=== PATIENT | female | born 1980 ===

== ENCOUNTER 2025-04-03 10:18 | Outpatient (AMB) | payer OTHER, SELFPAY ==
--- OUTSIDE RECORDS SUMMARY | 2024-08-02 04:15 | XMS_ITS ---
Author Organization [facility] Address [address] [place] [address] Care Team Providers Care Timber Inspector Name Role Phone TALIA DEXTER Unavailable [phone] Medications Medication SIG (Take, Route, Frequency, Duration) Notes Start Date End Date Status Zepbound 5 MG/0.5ML Solution Auto-injector 5mg weekly Subcutaneous weekly; Duration: 30 days Active Encounters Encounter Location Date Provider Diagnosis [facility] [address] [address] 08/02/2024 TALIA DEXTER Other obesity due to excess calories E66.09 ; BMI 31.0-31.9,adult Z68.31 ; Chronic obstructive asthma J44.9 ; GERD without esophagitis K21.9 ; Bipolar disorder with depression F31.9 ; CLEMENCIA (generalized anxiety disorder) F41.1 and Adult ADHD F90.9 Assessments Encounter Date Diagnosis (ICD Code) Assessment Notes Treatment Notes Treatment Clinical Notes Section Notes 08/02/2024 Other obesity due to excess calories (ICD-10 - E66.09) #Weight Management 08/02/2024 CEE injection Will try for approval for Zepbound as she was thriving on Mounjaro previously Recommend follow-up with psychiatry for stimulant medication for ADHD. Recommend follow-up with automation clerk for menopausal hormone screening. Total time spent today was 30 minutes of which greater than 50% was spent on coordinating and counseling Patient has been found to be obese with a BMI of (31). Patient has class (1) obesity. Of note, some information is being carried forward from prior records for informational purposes only and is being cited so that efficiency, safety and quality of the patient's care is not compromised This note was prepared using voice recognition software and direct typing Please excuse inadvertent hull outfit supervisor or typing errors, or uncorrected word substitutions Although every attempt has been made by the provider to proofread this document, occasional misspellings and typographical errors may still be present Due to the previous pandemic, and the use of personal protective equipment (PPE) This may decrease voice recognition accuracy Inadvertent hull outfit supervisor errors may occur 08/02/2024 BMI 31.0-31.9,adult (ICD-10 - Z68.31) #Weight Management 08/02/2024 CEE injection Will try for approval for Zepbound as she was thriving on Mounjaro previously Recommend follow-up with psychiatry for stimulant medication for ADHD. Recommend follow-up with automation clerk for menopausal hormone screening. Total time spent today was 30 minutes of which greater than 50% was spent on coordinating and counseling Patient has been found to be obese with a BMI of (31). Patient has class (1) obesity. Of note, some information is being carried forward from prior records for informational purposes only and is being cited so that efficiency, safety and quality of the patient's care is not compromised This note was prepared using voice recognition software and direct typing Please excuse inadvertent hull outfit supervisor or typing errors, or uncorrected word substitutions Although every attempt has been made by the provider to proofread this document, occasional misspellings and typographical errors may still be present Due to the previous pandemic, and the use of personal protective equipment (PPE) This may decrease voice recognition accuracy Inadvertent hull outfit supervisor errors may occur 08/02/2024 Chronic obstructive asthma (ICD-10 - J44.9) #Weight Management 08/02/2024 CEE injection Will try for approval for Zepbound as she was thriving on Mounjaro previously Recommend follow-up with psychiatry for stimulant medication for ADHD. Recommend follow-up with automation clerk for menopausal hormone screening. Total time spent today was 30 minutes of which greater than 50% was spent on coordinating and counseling Patient has been found to be obese with a BMI of (31). Patient has class (1) obesity. Of note, some information is being carried forward from prior records for informational purposes only and is being cited so that efficiency, safety and quality of the patient's care is not compromised This note was prepared using voice recognition software and direct typing Please excuse inadvertent hull outfit supervisor or typing errors, or uncorrected word substitutions Although every attempt has been made by the provider to proofread this document, occasional misspellings and typographical errors may still be present Due to the previous pandemic, and the use of personal protective equipment (PPE) This may decrease voice recognition accuracy Inadvertent hull outfit supervisor errors may occur 08/02/2024 GERD without esophagitis (ICD-10 - K21.9) #Weight Management 08/02/2024 CEE injection Will try for approval for Zepbound as she was thriving on Mounjaro previously Recommend follow-up with psychiatry for stimulant medication for ADHD. Recommend follow-up with automation clerk for menopausal hormone screening. Total time spent today was 30 minutes of which greater than 50% was spent on coordinating and counseling Patient has been found to be obese with a BMI of (31). Patient has class (1) obesity. Of note, some information is being carried forward from prior records for informational purposes only and is being cited so that efficiency, safety and quality of the patient's care is not compromised This note was prepared using voice recognition software and direct typing Please excuse inadvertent hull outfit supervisor or typing errors, or uncorrected word substitutions Although every attempt has been made by the provider to proofread this document, occasional misspellings and typographical errors may still be present Due to the previous pandemic, and the use of personal protective equipment (PPE) This may decrease voice recognition accuracy Inadvertent hull outfit supervisor errors may occur 08/02/2024 Bipolar disorder with depression (ICD-10 - F31.9) #Weight Management 08/02/2024 CEE injection Will try for approval for Zepbound as she was thriving on Mounjaro previously Recommend follow-up with psychiatry for stimulant medication for ADHD. Recommend follow-up with automation clerk for menopausal hormone screening. Total time spent today was 30 minutes of which greater than 50% was spent on coordinating and counseling Patient has been found to be obese with a BMI of (31). Patient has class (1) obesity. Of note, some information is being carried forward from prior records for informational purposes only and is being cited so that efficiency, safety and quality of the patient's care is not compromised This note was prepared using voice recognition software and direct typing Please excuse inadvertent hull outfit supervisor or typing errors, or uncorrected word substitutions Although every attempt has been made by the provider to proofread this document, occasional misspellings and typographical errors may still be present Due to the previous pandemic, and the use of personal protective equipment (PPE) This may decrease voice recognition accuracy Inadvertent hull outfit supervisor errors may occur 08/02/2024 CLEMENCIA (generalized anxiety disorder) (ICD-10 - F41.1) #Weight Management 08/02/2024 CEE injection Will try for approval for Zepbound as she was thriving on Mounjaro previously Recommend follow-up with psychiatry for stimulant medication for ADHD. Recommend follow-up with automation clerk for menopausal hormone screening. Total time spent today was 30 minutes of which greater than 50% was spent on coordinating and counseling Patient has been found to be obese with a BMI of (31). Patient has class (1) obesity. Of note, some information is being carried forward from prior records for informational purposes only and is being cited so that efficiency, safety and quality of the patient's care is not compromised This note was prepared using voice recognition software and direct typing Please excuse inadvertent hull outfit supervisor or typing errors, or uncorrected word substitutions Although every attempt has been made by the provider to proofread this document, occasional misspellings and typographical errors may still be present Due to the previous pandemic, and the use of personal protective equipment (PPE) This may decrease voice recognition accuracy Inadvertent hull outfit supervisor errors may occur 08/02/2024 Adult ADHD (ICD-10 - F90.9) #Weight Management 08/02/2024 CEE injection Will try for approval for Zepbound as she was thriving on Mounjaro previously Recommend follow-up with psychiatry for stimulant medication for ADHD. Recommend follow-up with automation clerk for menopausal hormone screening. Total time spent today was 30 minutes of which greater than 50% was spent on coordinating and counseling Patient has been found to be obese with a BMI of (31). Patient has class (1) obesity. Of note, some information is being carried forward from prior records for informational purposes only and is being cited so that efficiency, safety and quality of the patient's care is not compromised This note was prepared using voice recognition software and direct typing Please excuse inadvertent hull outfit supervisor or typing errors, or uncorrected word substitutions Although every attempt has been made by the provider to proofread this document, occasional misspellings and typographical errors may still be present Due to the previous pandemic, and the use of personal protective equipment (PPE) This may decrease voice recognition accuracy Inadvertent hull outfit supervisor errors may occur Plan Of Treatment Medication Medication Name Sig Start Date Stop Date Notes Zepbound 5 MG/0.5ML Solution Auto-injector 5mg weekly Subcutaneous weekly; Duration: 30 days Next Appt Details Provider Name:TALIA DEXTER, 07/04/2025 09:00:00 AM, [address] [facility], [facility] [address], [place], [address], History and Physical Notes * HPI (History of Present Illness) Category Sub-Category Detail Notes Category Not es Constitutional Patient is here today for weight management follow-up visit Patient seen and examined. Full past medical history, social history, family history, allergies and current medications were reviewed and updated. Body composition analysis reviewed today #Weight Management 08/02/2024 She is dual weight management and primary care patient of the practice Labs are reviewed Had been on 7.5mg Mounjaro, last injection in March* due to insurance Working on prior authorization for Zepbound, apparently [facility] will cover it As expected there is weight regain She has a history that includes major depression, bipolar depression, anxiety and ADHD Reports difficulty focusing at work, doing daily activities and would like to start medications She takes stimulants as well as fluoxetine, trazodone at bedtime and Tegretol as a mood stabilizer She also has as needed Klonopin She sees [facility]ING MACHINE [facility] for her psychiatric provider She currently is not terribly active or doing any strength or resistance training or cardio Admits to gaining weight back since being off the medications but previously had good appetite suppression. Later down the road when she is on maintenance dosing and done losing weight she would be interested in plastics evaluation for potential removal of excess skin had EGD done recently No ill side effects, reports mild constipation States that she is using Linzess which relieves her symptoms. Prioritizing eggs and protein shakes States that she is taking a probiotic, vitamin B12 complex, and vitamin D. paternal hx of CRC, young age, she has been getting screened for the past >5 years 08/02/2024, Weight , BMI 06/28/2024, Weight 173 , BMI (+7 lbs) 05/11/2024, Weight 167lbs , BMI 30 (-4lbs) 03/23/2024, Weight 171lbs , BMI 32 (-4lbs) 02/01/2024, Weight 175, BMI 32 (-2lbs) 11/23/2023, Weight 178 lbs, BMI 32.5 (-5lbs) 09/17/2023, Weight 183lbs , BMI 33 (-6lbs) 08/04/2023, Weight 189lbs , BMI 34 (+8lbs) 04/23/2023, Weight 181 lbs, BMI 33.2 (-4lbs) 03/05/2023: Weight 185 lbs (-8 lbs) BMI 33 01/09/2023: Weight 193 lb (-9 lbs) BMI 35.3 11/26/2022: Weight 202lbs, BMI 36, (-8lbs) 10/15/2022: Weight lbs, 210 BMI: 38 PCP, Dr. Brooke Ravi at [place]. Patient works as PRODUCTION CONTROL EXPERT. Highest weight: 235 lbs Lowest weight: 155 lbs Goal weight: 160 lbs MICHAEL screening: a while back, not recently. Was not a candidate for CPAP. labs June 2024 CBC stable Total cholesterol 212, triglycerides 94, HDL 67, LDL 126 Vitamin D 30 TSH 2.65 Renal function electrolytes and LFTs stable Hemoglobin A1c of 5.0 Health maintenance Mammography: 03/2024, [place] Colorectal screening, father passed from CRC young age, 01/2022, [facility], q5 year surveilance, due in 2026 Flu 2023 defers COVID mRNA 2 GYNO: 08/2023, [place] Examination Category Sub-Category Detail Notes Category Not es General Examination GENERAL APPEARANCE: in no ac cesar distress, well developed, well nourished HEAD: normocephalic, atrau matic EYES: pupils equal, round, reactive to light and accommodation EARS: normal THROAT: clear NECK/THYROID: neck supple, full ra nge of motion, no cervical lymphadenopathy HEART: no murmurs, regular rate and rhythm, S1, S2 normal LUNGS: inspiratory wheezes clear with cough ABDOMEN: normal, bowel sounds present, soft, nontender, nondistended NEUROLOGIC: nonfocal, motor stre ngth normal upper and lower extremities, sensory exam intact SKIN: no suspicious lesion s, warm and dry EXTREMITIES: no clubbing, cyanosi s, or edema ORAL CAVITY: mucosa moist Progress Notes * Delia OSBORNE:[birth year] (44 yo F)Acc No.[id number]:08/02/2024 Patient: Angela Garcia Provider: Lynn DEXTER NP :1980 A ge:44 Y S ex:Female Date:08/02/2024 Address:[address] [place], [place] [id number] Subjective: * Chief Complaints: * HPI: C onstitutional: Patient is here today for weight management follow-up visit Patient seen and examined. Full past medical history, social history, family history, allergies and current medications were reviewed and updated. Body composition analysis reviewed today #Weight Management 08/02/2024 She is dual weight management and primary care patient of the practice Labs are reviewed Had been on 7.5mg Mounjaro, last injection in March* due to insurance Working on prior authorization for Zepbound, apparently [facility] will cover it As expected there is weight regain She has a history that includes major depression, bipolar depression, anxiety and ADHD Reports difficulty focusing at work, doing daily activities and would like to start medications She takes stimulants as well as fluoxetine, trazodone at bedtime and Tegretol as a mood stabilizer She also has as needed Klonopin She sees [facility] for her psychiatric provider She currently is not terribly active or doing any strength or resistance training or cardio Admits to gaining weight back since being off the medications but previously had good appetite suppression. Later down the road when she is on maintenance dosing and done losing weight she would be interested in plastics evaluation for potential removal of excess skin had EGD done recently No ill side effects, reports mild constipation States that she is using Linzess which relieves her symptoms. Prioritizing eggs and protein shakes States that she is taking a probiotic, vitamin B12 complex, and vitamin D. paternal hx of CRC, young age, she has been getting screened for the past >5 years 08/02/2024, Weight , BMI 06/28/2024, Weight 173 , BMI (+7 lbs) 05/11/2024, Weight 167lbs , BMI 30 (-4lbs) 03/23/2024, Weight 171lbs , BMI 32 (-4lbs) 02/01/2024, Weight 175, BMI 32 (-2lbs) 11/23/2023, Weight 178 lbs, BMI 32.5 (-5lbs) 09/17/2023, Weight 183lbs , BMI 33 (-6lbs) 08/04/2023, Weight 189lbs , BMI 34 (+8lbs) 04/23/2023, Weight 181 lbs, BMI 33.2 (-4lbs) 03/05/2023: Weight 185 lbs (-8 lbs) BMI 33 01/09/2023: Weight 193 lb (-9 lbs) BMI 35.3 11/26/2022: Weight 202lbs, BMI 36, (-8lbs) 10/15/2022: Weight lbs, 210 BMI: 38 PCP, Dr. Brooke Ravi at [place]. Patient works as PRODUCTION CONTROL EXPERT. Highest weight: 235 lbs Lowest weight: 155 lbs Goal weight: 160 lbs MICHAEL screening: a while back, not recently. Was not a candidate for CPAP. labs June 2024 CBC stable Total cholesterol 212, triglycerides 94, HDL 67, LDL 126 Vitamin D 30 TSH 2.65 Renal function electrolytes and LFTs stable Hemoglobin A1c of 5.0 Health maintenance Mammography: 03/2024, [facility] Colorectal screening, father passed from CRC young age, 01/2022, [facility], q5 year surveilance, due in 2026 Flu 2023 defers COVID mRNA 2 GYNO: 08/2023, [place]/[facility]. * ROS: A ll Other Systems: Review of Systems (ROS) A ll others negative except those mentioned in HPI. Objective: * Examination: G eneral Examination: GENERAL APPEARANCE: i n no acute distress, well developed, well nourished. HEAD: n ormocephalic, atraumatic. EYES: p upils equal, round, reactive to light and accommodation. EARS: n ormal. ORAL CAVITY: m ucosa moist. THROAT: c lear. NECK/THYROID: n randal supple, full range of motion, no cervical lymphadenopathy. SKIN: n o suspicious lesions, warm and dry. HEART: n o murmurs, regular rate and rhythm, S1, S2 normal.? LUNGS: i nspiratory wheezes clear with cough. ABDOMEN: n ormal, bowel sounds present, soft, nontender, nondistended. EXTREMITIES: n o clubbing, cyanosis, or edema. NEUROLOGIC: n onfocal, motor strength normal upper and lower extremities, sensory exam intact. Assessment: * Assessment: 1. O ther obesity due to excess calories - E66.09 2 . B [place] 31.0-31.9,adult - Z68.31 3 . C hronic obstructive asthma - J44.9 4 . G ERD without esophagitis - K21.9 5 . B ipolar disorder with depression - F31.9 & #160; 6 . G AD (generalized anxiety disorder) - F41.1 7 . A dult ADHD - F90.9 #Weight Management 08/02/2024 CEE injection Will try for approval for Zepbound as she was thriving on Mounjaro previously Recommend follow-up with psychiatry for stimulant medication for ADHD. Recommend follow-up with automation clerk for menopausal hormone screening. Total time spent today was 30 minutes of which greater than 50% was spent on coordinating and counseling Patient has been found to be obese with a BMI of (31). Patient has class (1) obesity. Of note, some information is being carried forward from prior records for informational purposes only and is being cited so that efficiency, safety and quality of the patient's care is not compromised This note was prepared using voice recognition software and direct typing Please excuse inadvertent hull outfit supervisor or typing errors, or uncorrected word substitutions Although every attempt has been made by the provider to proofread this document, occasional misspellings and typographical errors may still be present Due to the previous pandemic, and the use of personal protective equipment (PPE) This may decrease voice recognition accuracy Inadvertent hull outfit supervisor errors may occur. Plan: * Treatment: * Electronic signature of BRIGITTE DEXTER on 04/03/2025 at 11:40 AM EST Sign off status: Pending * Provider: Lynn DEXTER NP Date: 0 08/02/2024 Generated for Jordan warner/Zahida/Bakari on: 1 11:40 AM EST
--- OUTSIDE RECORDS SUMMARY | 2025-03-29 09:25 | XMS_ITS | Encounter Summary ---
Author Organization [facility] Address [address] [place] [address] Care Team Providers Care Aircraft Cabin Cleaner Name Role Phone Evelin Heard NP Primary Care Provider [phone] Encounter Details Date Type Department Care Team ([facility] Contact Info) Description 03/29/2025 9:25 AM EST Lab Draw Station - [address] Screen for STD (sexually transmitted disease); Post-menopausal bleeding Social History Tobacco Use Types Packs/Day Years Used Date Smoking Tobacco: Never Smokeless Tobacco: Never Alcohol Use Standard Drinks/Week Comments Yes 0 (1 standard drink = 0.6 oz pur e alcohol) Comments No Sex and Gender Information Value Date Recorded Sex Assigned at Not on file Legal Sex Female 4:51 AM EST Gender Identity Not on file Sexual Orientation Not on file documented as of this encounter Plan of Treatment Upcoming Encounters Date Type Department Care Team ([facility] Contact Info) Description 04/04/2025 9:45 AM EST Appointment Ultrasound - [address] [phone] 11/24/2025 8:40 AM EDT Office Visit Gastroenterology - [address] [phone] Diann Chavez NP [address] [address] documented as of this encounter Procedures Procedure Name Priority Date/Time Associated Diagnosis Comments HEPATITIS C ANTIBODY Routine 03/29/2025 9:26 AM EST Screen for STD (sexually transmitted disease) HIV 1, 2 ANTIBODY, P24 ANTIGEN WITH REFLEX TO DIFFERENTIATION Routine 03/29/2025 9:26 AM EST Screen for STD (sexually transmitted disease) TREPONEMA PALLIDUM ANTIBODY WITH REFLEX TO RPR AND PARTICLE AGGLUTINATION Routine 03/29/2025 9:26 AM EST Screen for STD (sexually transmitted disease) FOLLICLE STIMULATING HORMONE Routine 03/29/2025 9:26 AM EST Post-menopausal bleeding documented in this encounter Results * Follicle stimulating hormone (03/29/2025 9:26 AM EST) Follicle Stimulating Hormone 24.7 See Comment mIU/mL 03/29/2025 2:24 PM EST [facility] Blood Venous blood specimen / Unknown Venipuncture / Unknown 03/29/2025 9:26 AM EST 03/29/2025 9:26 AM EST Narrative [facility] - 03/29/2025 2:24 PM EST [facility] Female Reference Ranges (mIU/mL): Menstruating: Follicular phase: 2.5 - 10.2 Mid-cycle phase: 3.4 - 33.4 Luteal phase: 1.5 - 9.1 Post-menopausal: 23.0 - 116.3 : < 0.3 Latia Nichols CNM LAB BLOOD ORDERABLES Final R esult [facility] [address] [place] [address], * Treponema pallidum antibody with reflex to RPR and particle agglutination (03/29/2025 9:26 AM EST) Pathologist [facility] T. Pallidum Antibodies Negative Negative 03/29/2025 12:31 PM EST [facility] Blood Venous blood specimen / Unknown Venipuncture / Unknown 03/29/2025 9:26 AM EST 03/29/2025 9:26 AM EST Latia Nichols [facility] BLOOD ORDERABLES Final R esult Performing Organization Address City/[facility]/ZIP Co de Phone Number [facility] [address] [place] [address], [place] [phone] * HIV 1,2 antibody, p24 antigen with reflex to differentiation (03/29/2025 9:26 AM EST) HIV Combo AB/AG Negative Negative 03/29/2025 12:41 PM EST [facility] Blood Venous blood specimen / Unknown Venipuncture / Unknown 03/29/2025 9:26 AM EST 03/29/2025 9:26 AM EST Narrative [facility] - 03/29/2025 12:41 PM EST This assay is a 4th generation assay allowing for earlier detection of HIV infection by detecting the presence of the HIV-1 p24 antigen as well as the traditional antibodies to HIV type 1 (including group O) and type 2. Use of a 4th generation assay is the current CDC recommendation for HIV screening. Latia Nichols [facility] BLOOD ORDERABLES Final R esult Performing Organization Address [facility] Co de Phone Number [facility] [address] [place] [address], [place] [phone] * Hepatitis C antibody (03/29/2025 9:26 AM EST) Pathologist [facility] Hepatitis C Antibody Negative Negative 03/29/2025 12:48 PM EST [facility] Blood Venous blood specimen / Unknown Venipuncture / Unknown 03/29/2025 9:26 AM EST 03/29/2025 9:26 AM EST Latia Nichols [facility] BLOOD ORDERABLES Final R esult Performing Organization Address City/[facility]/ZIP Co de Phone Number [facility] [address] [place] [address], documented in this encounter Visit Diagnoses Diagnosis Screen for STD (sexually transmitted disease) Screening examination for venereal disease Post-menopausal bleeding Postmenopausal bleeding documented in this encounter Care Teams Aircraft Cabin Cleaner Relationship Specialty Start Date End Date Evelin eHard NP [address] [place] [address] PCP - General Nurse Practitioner 07/12/24 documented as of this encounter
--- OUTSIDE RECORDS SUMMARY | 2025-03-29 09:30 | XMS_ITS | Encounter Summary ---
Author Organization [facility] Address [address] [place] [address] Care Team Providers Care Thrasher Feeder Name Role Phone Evelin Heard NP Primary Care Provider [phone] Reason for Referral * Imaging (Routine) - Pending Review Specialty Diagnoses / Procedures Referred By Ceci frey Referred To Contact Radiology Diagnoses Post-menopausal bleeding Procedures US Pelvis Non OB Complete w Transvaginal Latia Nichols CNM [address] [place] [address] Phone: tel: fax: [address] Phone: tel: Referral ID Status Reason Start Date Expiration Date V isits Requested Visits Authorized [id number] Pending Review 03/29/2025 03/29/2026 1 1 Reason for Visit * Reason Comments Annual Exam Encounter Details Date Type Department Care Team (Latest Contact Info) Description 03/29/2025 9:30 AM EST Office Visit Obstetrics and Gynecology - [address] [phone] Latia Nichols CNM [address] [place] [id number] Screen for STD (sexually transmitted disease) (Primary Dx); Post-menopausal bleeding Social History Tobacco Use Types [...] on file documented as of this encounter Last Filed Vital Signs Vital Sign Reading Time Taken Comments Blood Pressure 122/76 03/29/2025 8:59 AM EST Pulse 74 03/29/2025 8:59 AM EST Temperature - - Respiratory Rate 16 03/29/2025 8:59 AM EST Oxygen Saturation - - Inhaled Oxygen Concentration - - Weight 65.9 kg (145 lb 3.2 oz) 03/29/2025 8:59 A M EST Height 157.5 cm (5' 2 ) 03/29/2025 8:59 AM EST Body Mass Index 26.56 03/29/2025 8:59 AM EST documented in this encounter Progress Notes * Latia Nichols CNM - 03/29/2025 9:30 AM EST Office note: Routine Pass Worker Exam Encounter Date: 03/29/2025 HPI: Angela Osborne is a 44 y.o. who presents for routine annual exam. No LMP recorded (lmp unknown). Patient is postmenopausal. She says about 2 years, although about 3 weeks ago she had 2 episodes of spotting and passing a clot of tissue from her vagina. She has one partner, but would like STD testing. Review of Systems - General ROS: negative Psychological ROS: negative Ophthalmic ROS: negative ENT ROS: negative Allergy and Immunology ROS: negative Hematological and Lymphatic ROS: negative Endocrine ROS: negative Breast ROS: negative for breast lumps Respiratory ROS: no cough, shortness of breath, or wheezing Cardiovascular ROS: no chest pain or dyspnea on exertion Gastrointestinal ROS: no abdominal pain, change in bowel habits, or black or bloody stools Genito-Urinary ROS: no dysuria, trouble voiding, or hematuria Musculoskeletal ROS: negative Neurological ROS: negative Dermatological ROS: negative Health Maintenance and Preventative Care: Health Maintenance: Last mammogram: 03/30 BR 2 Immunization History Administered Date(s) Administered HPV, Quadrivalent 10/27/2006, 12/30/2006, 05/04/2007 Hep B, Unspecified 02/26/2009 Influenza Quadravalent, MDCK, 0.5ml, preservative free (Flucelvax) 6mo and older 01/09/2020 Influenza trivalent, 0.5mL, preservative free (Fluarix; FluLaval; Fluzone) ages 6mo and older (Afluria) 3 years and older 01/31/2011, 12/12/2011, 04/21/2013, 12/28/2013, 12/28/2015, 12/20/2019 Influenza, Unspecified 12/28/2013, 02/03/2021 Measles 04/30/2007 Mumps 04/30/2007 PPD Test 12/02/2005, 04/30/2007, 02/23/2009, 06/08/2019 Pfizer SARS-CoV-2 COVID-19, mRNA, LNP-S, preservative free 02/03/2021, 02/24/2021 Pneumococcal polysaccharide 23 valent (Pneumovax 23) 2yo and older 05/17/2013 Rubella 04/30/2007 Tdap Tetanus diptheria acellular pertussis (Boostrix; Adacel) 7yo and older 04/30/2007, 11/12/2017 Varicella live (Varivax) 12mo and older 04/30/2007 OB History Para Term AB Living 4 4 4 SAB IAB Ectopic Multiple Live Births 4 # Outcome Date GA Lbr Cale/2nd Weight Sex Type Anes PTL Lv 4 Term 3 Term 2 Term 1 Term Pass Worker History: Last Pap: 11/27 neg H/o abnormal Pap: 09/23 pap neg, HPV + Problem List[1] Medical History[2] Surgical History[3] Family History[4] Social History Socioeconomic History Marital status: Single Spouse name: None Number of children: None Years of education: None Highest education level: None Occupational History None Tobacco Use Smoking status: Never Smokeless tobacco: Never Substance and Sexual Activity Alcohol use: Yes Drug use: Yes Types: Marijuana/Cannabis Sexual activity: Yes Partners: Male control/protection: Surgical Comment: tubal Other Topics Concern None Social History Narrative 05/29-works as [employer]. Same partner x 6 yrs, engaged. They have 2 daughters together ages 6 and 4 yrs, she has 2 older daughters. Work FT as SENIOR BUSINESS PROCESS ANALYST. Allergies[5] Medications Ordered Prior to Encounter[6] Physical exam: Blood pressure 122/76, pulse 74, resp. rate 16, height 1.575 m (62 ), weight 65.9 kg (145 lb 3.2 oz). Body mass index is 26.56 kg/m??. Gen: Alert, cooperative. Well-appearing on today's exam HEENT: head normocephalic without obvious deformity. Cardiovascular: regular rate and rhythm, no m/r/g Lung: clear to auscultation bilaterally, no wheezing, ronchi, normal respiratory effort Breast: Normal appearance, no masses or tenderness, no nipple retraction or dimpling bilaterally. No axillary or supraclavicular lymphadenopathy. Abdomen: Soft,non-tender. No masses palpable, no organomegaly. Extremities: no calf tenderness, discoloration or edema, atraumatic without deformity Skin: Skin color, texture, turgor normal. No rashes or lesions Psych: Mood and affect appropriate. Pelvic: External Genitalia: Normal architecture, without lesions. No inguinal lymphadenopathy. Vagina: Mucosa is pink with normal rugae. No abnormal discharge or lesions. Cervix: Normal appearance, without discharge or lesions. No cervical motion tenderness. Uterus: Normal size and shape. Anteverted position. Non-tender. Mobile Adnexa: No adnexal masses or tenderness bilaterally. Perianal area without lesions Assessment/Plan: 44 y.o. 1. Screening for sexually transmitted infections -Gonorrhea/Chlamydia testing offered, accepted 2. Contraception -menopause 3. Health Maintenance and Screening -Reviewed ASCCP guidelines. Pap smear q5y, yearly pelvic exam. -Reviewed and encouraged diet and exercise for cardiovascular and bone health -Reviewed breast self awareness. yearly mammogram at age 40. -Discussed use of 3 times per week weight bearing exercise, Vitamin D3 and 4 servings of dietary calcium daily for bone health. -Continue to follow with PCP for general medical care, immunizations -Family and personal history of cancer reviewed. Jase screening not indicated. IF labs are negative, will refer for EMB No follow-ups on file. Latia Nichols CNM [1] Patient Active Problem List Diagnosis Anxiety Backache Bipolar disorder ([facility] V24, [facility] V28) Cervical disc herniation Chronic constipation Gastroesophageal reflux disease History of COVID-19 Insomnia Internal and external hemorrhoids without complication Kidney stone Lab test negative for COVID-19 virus Microhematuria Migraine Multiple thyroid nodules Moderate persistent asthma without complication Neck pain Obesity (BMI 30-39.9) Perennial allergic rhinitis PTSD (post-traumatic stress disorder) Snoring Vitamin D deficiency [2] Past Medical History: Diagnosis Date Anxiety DX:Anxiety ASCUS with positive high risk HPV cervical 09/21/2018 DX:ASCUS with positive high risk HPV cervical; COMMENT: 09/13/18 pap smear Colpo 10/26/18 - biopsies all negative Bipolar disorder ([facility] V24, [facility] V28) DX:Bipolar disorder ([facility]); COMMENT: clinical support [facility] Cervical spondylosis without myelopathy DX:Cervical spondylosis without myelopathy Chronic constipation 02/20/2016 DX:Chronic constipation Constipation DX:Constipation CTS (carpal tunnel syndrome) DX:CTS (carpal tunnel syndrome) Depression DX:Depression False positive HIV serology DX:False positive HIV serology Family history of colon cancer in father DX:Family history of colon cancer in father Family history of colonic polyps DX:Family history of colonic polyps Functional dyspepsia DX:Functional dyspepsia Gastroesophageal reflux disease 11/15/2018 DX:Gastroesophageal reflux disease GERD (gastroesophageal reflux disease) DX:GERD (gastroesophageal reflux disease) History of colonoscopy 11/18/2016 DX:History of colonoscopy; COMMENT: Family history, repeat in 5 years History of Helicobacter pylori infection 10/04/2018 DX:History of Helicobacter pylori infection; COMMENT: successfully treated with a PrevPac (2018) Internal and external hemorrhoids without complication 02/20/2016 DX:Internal and external hemorrhoids without complication Obesity, unspecified 11/27/2005 DX:Obesity, unspecified Unspecified asthma(493.90) 11/27/2005 DX:Unspecified asthma(493.90) [3] Past Surgical History: Procedure Laterality Date ADENOIDECTOMY PROCEDURE: HISTORICAL ADENOIDECTOMY BLADDER SUSPENSION PROCEDURE: HISTORICAL BLADDER SUSPENSION COLONOSCOPY 11/18/2016 PROCEDURE: HISTORICAL COLONOSCOPY; COMMENT: Dr. Janet norris, repeat 5 years. COLONOSCOPY 2021 PROCEDURE: HISTORICAL COLONOSCOPY; COMMENT: rpt 5 years FLEXIBLE SIGMOIDOSCOPY 2015 PROCEDURE: HISTORICAL FLEXIBLE SIGMOIDOSCOPY; COMMENT: Internal and external hemorrhoids NECK SURGERY PROCEDURE: HISTORICAL NECK SURGERY NECK SURGERY 04/2022 PROCEDURE: HISTORICAL NECK SURGERY; COMMENT: herniated disc NECK SURGERY PROCEDURE: HISTORICAL NECK SURGERY; COMMENT: cervical spinal fusion TONSILLECTOMY 2000 PROCEDURE: HISTORICAL TONSILLECTOMY TUBAL LIGATION 2004 PROCEDURE: HISTORICAL TUBAL LIGATION UPPER GASTROINTESTINAL ENDOSCOPY 12/08/2019 PROCEDURE: FL UPPER GI ENDOSCOPY PERFORMED; COMMENT: normal [4] Family History Problem Relation Name Age of Onset Diabetes Mother Hypertension Mother Colon cancer Father 56 Nephrolithiasis Sister Hypertension Sister Diabetes Sister Alzheimer's disease Other both grandmothers Lymphoma Mother's side grandmother Cataracts Maternal Grandmother Dementia Maternal Grandmother Alzheimer's disease Paternal Grandmother Other (Other: GI issues) Sister Asthma Daughter Asthma Daughter Asthma Daughter No Known Problems Daughter Colon cancer Father's side Other (Other: pancreatic cancer) Father's side Colon cancer Aunt dad's sis Blindness Neg Hx Glaucoma Neg Hx Macular degeneration Neg Hx Strabismus Neg Hx [5] Allergies Allergen Reactions Dog Dander Other feathers Topiramate Rash [6] Current Outpatient Medications on File Prior to Visit Medication Sig Dispense Refill albuterol 2.5 mg /3 mL (0.083 %) nebulizer solution Take 1 Vial by nebulization every 4 hours as needed for Wheezing for up to 180 days. albuterol HFA (PROAIR HFA ; PROVENTIL HFA ; VENTOLIN HFA) 90 mcg/actuation inhaler INHALE 2 PUFFS INTO THE LUNGS EVERY 4 HOURS NEEDED FOR COUGH OR WHEEZING aluminum-magnesium hydroxide-simethicone (MAALOX) 200-200-20 mg/5 mL suspension Take 15 mL by mouth4 times daily as needed for Other. azelastine (ASTELIN) 137 mcg (0.1 %) nasal spray USE 2 SPRAYS IN EACH NOSTRIL TWICE DAILY cetirizine (ZyrTEC) 10 mg tablet Take 1 Tablet by mouth daily. clonazePAM (KlonoPIN) 1 mg tablet Take 1 Tab by mouth 3 times daily as needed for Anxiety. clotrimazole-betamethasone (LOTRISONE) 1-0.05 % cream Apply to area sparingly twice a day for up totwo weeks cyclobenzaprine (FLEXERIL) 10 mg tablet Take 0.5-1 Tablets by mouth at bedtime as needed for Musclespasms. diphenhydramine HCl (ALLERGY ORAL) divalproex (DEPAKOTE) [address] tablet Take 3 Tablets by mouth at bedtime. dupilumab (Dupixent Syringe) 200 mg/1.14 mL syringe INJECT 1 SYRINGE (200MG) UNDER THE SKIN EVERY 14 DAYS EPINEPHrine (EpiPen 2-Wan) 0.3 mg/0.3 mL injection Inject 1 Device as directed as needed (ANAPHYLAXIS). Use as directed etonogestreL-ethinyl estradioL (NUVARING) 0.12-0.015 mg/24 hr vaginal ring Insert vaginally and leave in place for 3 consecutive weeks, then remove for 1 week. famotidine (PEPCID) 20 mg tablet Take 1 Tablet by mouth at bedtime as needed for Heartburn. FLUoxetine (PROzac) 20 mg capsule Take 1 capsule (20 mg total) by mouth. fluticasone propionate (FLONASE) 50 mcg/actuation nasal spray 1 [place] by Each Nare route 2 times daily. fluticasone-salmeterol (ADVAIR DISKUS) 250-50 mcg/dose diskus inhaler Inhale 1 Puff into the lungs every 12 hours for 360 days. gabapentin (NEURONTIN) 300 mg capsule gabapentin (NEURONTIN) 600 mg tablet Take 1 tablet by mouth at bedtime. hydrocortisone 1 % ointment Apply topically to face twice daily as needed, avoid contact with eyes Lactobacillus combination no.8 (ADULT PROBIOTIC ORAL) Take 1 Cap by mouth daily. - Oral lidocaine (LIDODERM) 5 % patch Place 1 patch onto the skin daily. Remove & Discard patch [id number] hours or as directed by linaCLOtide (Linzess) 290 mcg capsule Take 1 capsule (290 mcg total) by mouth 1 (one) time each daybefore breakfast. 30 capsule 2 methocarbamoL (ROBAXIN) 500 mg tablet Take 2 tablets (1,000 mg total) by mouth 4 (four) times a day. montelukast (SINGULAIR) 10 mg tablet Every Evening naproxen (NAPROSYN) 500 mg tablet Take 1 tablet (500 mg total) by mouth 2 (two) times a day with meals. ondansetron ODT (ZOFRAN-ODT) 4 mg disintegrating tablet Take 1 Tablet by mouth every 8 hours as needed for Nausea. OXcarbazepine (TRILEPTAL) 300 mg tablet Take 3 Tabs by mouth daily. pantoprazole (PROTONIX) 40 mg EC tablet Take 1 Tablet by mouth daily. phenazopyridine (PYRIDIUM) 100 mg tablet Take 1 Tablet by mouth 3 times daily as needed for Pain for up to 5 days. psyllium (Daily Fiber, psyllium-aspart,) 3.4 gram packet Take 1 Packet by mouth daily. simethicone (MYLICON,GAS-X) 125 mg capsule Take 1 Capsule by mouth 2 times daily as needed (bloating). SUMAtriptan (IMITREX) 50 mg tablet Take 1 tab at onset of headache and may repeat with second tab if not improving after 2 hours, if needed for headaches. Do not exceed 3 doses per week tiotropium (SPIRIVA) 18 mcg per inhalation capsule Daily traZODone (DESYREL) 50 mg tablet Take 50 mg by mouth at bedtime. No current facility-administered medications on file prior to visit. documented in this encounter Plan of Treatment Upcoming Encounters Date Type Department Care Team ([facility] st Contact Info) Description 04/04/2025 9:45 AM EST Appointment Ultrasound - [address] [place] [address] 11/24/2025 8:40 AM EDT Office Visit Gastroenterology - [address] [phone] Diann Chavez, MADHU [address] [address] Scheduled Orders Name Type Priority Associated Diagnoses Orde r Schedule US Pelvis Non OB Complete w Transvaginal Imaging Routine Post-menopausal bleeding Expected: 03/29/2025, Expires: 03/29/2026 documented as of this encounter Procedures Procedure Name Priority Date/Time Associated Diagnosis Comments CHLAMYDIA TRACHOMATIS AND NEISSERIA GONORRHOEAE PCR Routine 03/29/2025 9:44 AM EST Screen for STD (sexually transmitted disease) documented in this encounter Results * Chlamydia trachomatis and Neisseria gonorrhoeae molecular study (03/29/2025 9:44 AM EST) Neisseria gonorrhoeae PCR Negative Negative LAB MOLECULAR DIAGNOSTICS METHOD 03/29/2025 4:08 PM EST [facility] Chlamydia trachomatis PCR Negative Negative LAB MOLECULAR DIAGNOSTICS METHOD 03/29/2025 4:[address] [facility] Swab Vaginal structure / Unknown Non-blood Collection / Unknown 03/29/2025 9:44 AM EST 03/29/2025 9:45 AM EST Latia Nichols CNM LAB MICROBIOLOGY - GENERAL O RDERABLES Final Result Performing Organization Address [facility]/ZIP Co de Phone Number [facility] [address] [place] [address], * Hepatitis C antibody (03/29/2025 9:26 AM EST) Hepatitis C Antibody Negative Negative 03/29/2025 12:48 PM [facility] Blood Venous blood specimen / Unknown Venipuncture / Unknown 03/29/2025 9:26 AM EST 03/29/2025 9:26 AM EST Latia Nichols CNM LAB BLOOD ORDERABLES Final R esult Performing Organization Address City/[facility]/ZIP Co de Phone Number [facility] [address] [place] [address], * HIV 1,2 antibody, p24 antigen with reflex to differentiation (03/29/2025 9:26 AM EST) HIV Combo AB/AG Negative Negative 03/29/2025 12:[address] [facility] Blood Venous blood specimen / Unknown Venipuncture / Unknown 03/29/2025 9:26 AM EST 03/29/2025 9:[address] [facility] - 03/29/2025 12:41 PM EST This assay is a 4th generation assay allowing for earlier detection of HIV infection by detecting the presence of the HIV-1 p24 antigen as well as the traditional antibodies to HIV type 1 (including group O) and type 2. Use of a 4th generation assay is the current CDC recommendation for HIV screening. us Latia IRAHETA LAB BLOOD ORDERABLES Final R esult [facility] [address] [place] [address], [place] [phone] * Treponema pallidum antibody with reflex to RPR and particle agglutination (03/29/2025 9:26 AM EST) T. Pallidum Antibodies Negative Negative 03/29/2025 12:[address] [facility] Blood Venous blood specimen / Unknown Venipuncture / Unknown 03/29/2025 9:26 AM EST 03/29/2025 9:26 AM EST Latia [facility] BLOOD ORDERABLES Final R esult Performing Organization Address [facility]/ZIP Co de Phone Number [facility] [address] [place] [address], [place] [phone] * Follicle stimulating hormone (03/29/2025 9:26 AM EST) Follicle Stimulating Hormone 24.7 See Comment mIU/mL 03/29/2025 2:[address] [facility] Blood Venous blood specimen / Unknown Venipuncture / Unknown 03/29/2025 9:26 AM EST 03/29/2025 9:[address] [facility] - 03/29/2025 2:24 PM EST [facility] Female Reference Ranges (mIU/mL): Menstruating: Follicular phase: 2.5 - 10.2 Mid-cycle phase: 3.4 - 33.4 Luteal phase: 1.5 - 9.1 Post-menopausal: 23.0 - 116.3 : < 0.3 Latia IRAHETA [facility] BLOOD ORDERABLES Final R esult Performing Organization Address City/[facility]/ZIP Co de Phone Number [facility] [address] [phone] documented in this encounter Visit Diagnoses Diagnosis Screen for STD (sexually transmitted disease)- Primary Screening examination for venereal disease Post-menopausal bleeding Postmenopausal bleeding documented in this encounter Care Teams Thrasher Feeder Relationship Specialty Start Date End Date Evelin Heard NP [address] [place] [address] PCP - General Nurse Practitioner 07/12/24 documented as of this encounter
--- NOTE | 2025-04-03 10:19 | MHC.OFFVIS ---
Intake Visit Reasons: 6m Allergies topiramate (Topamax) Allergy (Unknown, Verified 04/03/25 10:20) Unknown Medication List - Last Reconciled 04/03/25 by Hayley Maza CNP albuterol sulfate 90 mcg/actuation 1 puff inhalation Q4H PRN azelastine 2 sprays intranasal DAILY cetirizine 10 mg PO DAILY clonazepam 1 mg PO TID PRN cyclobenzaprine 10 mg PO TID dupilumab (Dupixent) mg subcut fluoxetine 20 mg PO DAILY fluticasone propion-salmeterol 500-50 mcg/dose (Wixela Inhub) inhalation DAILY galcanezumab-gnlm (Emgality Pen) 120 mg subcut QMONTH linaclotide (Linzess) 290 mcg PO DAILY ondansetron HCl 4 mg PO DAILY PRN oxcarbazepine 300 mg PO TID pantoprazole 40 mg PO QAM quetiapine 50 mg PO BEDTIME sumatriptan succinate take 1 tab at onset of headache; if no relief may repeat 1 tab after at least 2 hrs; PO 30 days trazodone 150 mg PO BEDTIME verapamil 40 mg PO BID HPI Comments Details: 44-year-old [place] woman with depression, anxiety, bipolar disorder, asthma, and migraine. She had tried multiple medications in the past without full relief. Migraines were much better with Emgality and she was very happy with this medication. She got some headaches a few days before next dose of medication was due. Sumatriptan as needed helped. Sleep was okay. Review of Systems Const Denies chills, Denies daytime sleepiness, Reports difficulty sleeping, Denies fatigue, Denies fever(s), Denies frequent falls, Reports headache(s), Denies increased appetite, Denies poor appetite, Denies snoring, Denies weakness, Denies weight gain and Denies weight loss Eyes Denies loss of vision ENT Denies vertigo, Reports dizziness and Reports headache(s) Card Denies chest pain at rest, Denies chest pain with activity, Denies syncope, Denies leg edema and Denies palpitations Resp Denies snoring GI Denies constipation, Denies heartburn, Denies diarrhea and Denies nausea Denies urinary frequency, Denies urinary incontinence and Denies urinary urgency Musc Denies abnormal gait, Denies numbness and Denies tingling Skin/Breast Denies dry skin and Denies rash Neuro Denies abnormal gait, Denies vertigo, Reports dizziness, Denies syncope, Denies frequent falls, Reports headache(s), Denies lack of coordination, Denies loss of vision, Denies memory loss, Denies numbness, Denies restless legs, Denies seizure-like activity, Denies tingling, Denies paresthesias, Denies tremor(s) and Denies weakness Psych Reports anxiety, Reports depression, Denies auditory hallucinations, Denies memory loss, Denies visual hallucinations and Denies suicidal ideation Endo Denies fatigue and Denies palpitations Physical Exam Const Other: General Appearance:? normal, in no acute distress. Skin:? no rashes, no significant birthmarks. Heart:? S1, S2 normal, no murmurs. Lungs:? clear anteriorly and posteriorly. Extremities:? no edema. Psych:? alert, oriented, cognitive function intact, cooperative with exam. Neuro Other: Mental Status:?Normal attention, orientation, memory and affect.? Cranial Nerves:?Pupils are equal, round and reactive to light. External occular muscles are intact. Visual foster are full. Face is symmetrical. Facial sensations are normal. Tongue is midline. Palate elevates symmetrically. Shoulder shrugging is normal. Hearing to bedside conversation is normal. Sensory Exam:?....? Coordination:?No ataxia,?no titubation.? Gait Exam: Within normal limits. Cerebellar Signs:?[id number]-tiby is okay. Extrapyramidal System:?No tremor, rigidity with normal facial expressions.? Pronator Drift:?Not present.? Involuntary Movements:?No tremors seen.? Speech:?Normal.? Assessment & Plan Assessment & Plan (1) Chronic migraine w/o aura w/o status migrainosus, not intractable: Code(s): G43.709 - Chronic migraine without aura, not intractable, without status migrainosus Category: Medical Plan: Continue Emgality 120mg/mL subcutaneous monthly. Continue verapamil 40mg 1 tablet twice a day. Continue sumatriptan 50mg 1 tablet as needed for migraines. Plan Meds tried for migraine: Amitryptiline, topiramate, depakote, prophranalol, cyclobenzperine, sumatripan, naproxen, fluoxetine, oxcarbazepine Emgality loading dose given 12/28/2023. Medications: New verapamil 40 mg PO BID 180 tabs 1RF 90 days Changed From galcanezumab-gnlm (Emgality Pen) 120 mg subcut QMONTH To galcanezumab-gnlm (Emgality Pen) 120 mg subcut QMONTH 1 mL 5RF 30 days Refilled sumatriptan succinate take 1 tab at onset of headache; if no relief may repeat 1 tab after at least 2 hrs; PO 10 tabs 5RF 30 days Coding Level of Care Code Est Pt Level 4 (40492) Diagnoses Chronic migraine w/o aura w/o status migrainosus, not intractable G43.709
--- OUTSIDE RECORDS SUMMARY | 2025-04-03 11:40 | XMS_ITS | Clinical Summary ---
Author Organization [address] Address [address] [place] [phone] Phone Care Team Providers Care Network Support Technician Name Role Phone Evelin Heard NP Primary Care Provider [phone] Allergies Active Allergy Reactions Criticality Noted Date Comments Dog Dander 11/24/2024 Other 11/13/2021 feathers Topiramate Rash 02/24/2018 Medications diphenhydramine HCl (ALLERGY ORAL) A ctive albuterol 2.5 mg /3 mL (0.083 %) nebulizer solution Take 1 Vial by nebulization every 4 hours as needed for Wheezing for up to 180 days. 09/24/19 24 Active albuterol HFA (PROAIR HFA ; PROVENTIL HFA ; VENTOLIN HFA) 90 mcg/actuation inhaler INHALE 2 PUFFS INTO THE LUNGS EVERY 4 HOURS NEEDED FOR COUGH OR WHEEZING 11/24/19 24 Active azelastine (ASTELIN) 137 mcg (0.1 %) nasal spray USE 2 SPRAYS IN EACH NOSTRIL TWICE DAILY 08/12/19 23 Active cetirizine (ZyrTEC) 10 mg tablet Take 1 Tablet by mouth daily. 11/14/19 22 Active clotrimazole-betam ethasone (LOTRISONE) 1-0.05 % cream Apply to area sparingly twice a day for up to two weeks 01/10/20 23 Active clonazePAM (KlonoPIN) 1 mg tablet Take 1 Tab by mouth 3 times daily as needed for Anxiety. 10/04/19 20 Active cyclobenzaprine (FLEXERIL) 10 mg tablet Take 0.5-1 Tablets by mouth at bedtime as needed for Muscle spasms. 09/24/19 24 Active divalproex (DEPAKOTE) [address] tablet Take 3 Tablets by mouth at bedtime. 09/28/19 Active dupilumab (Dupixent Syringe) 200 mg/1.14 mL syringe INJECT 1 SYRINGE (200MG) UNDER THE SKIN EVERY 14 DAYS 01/11/20 Active EPINEPHrine (EpiPen 2-Wan) 0.3 mg/0.3 mL injection Inject 1 Device as directed as needed (ANAPHYLAXIS). Use as directed 04/23/19 Active etonogestreL-ethin yl estradioL (NUVARING) 0.12-0.015 mg/24 hr vaginal ring Insert vaginally and leave in place for 3 consecutive weeks, then remove for 1 week. 07/10/19 24 Active famotidine (PEPCID) 20 mg tablet Take 1 Tablet by mouth at bedtime as needed for Heartburn. 01/15/20 Active FLUoxetine (PROzac) 20 mg capsule Take 1 capsule (20 mg total) by mouth. 10/04/19 Active fluticasone-salmet garrett (ADVAIR DISKUS) 250-50 mcg/dose diskus inhaler Inhale 1 Puff into the lungs every 12 hours for 360 days. 03/07/20 Active fluticasone propionate (FLONASE) 50 mcg/actuation nasal spray 1 [place] by Each Nare route 2 times daily. 03/07/20 Active gabapentin (NEURONTIN) 600 mg tablet Take 1 tablet by mouth at bedtime. 02/14/20 Active gabapentin (NEURONTIN) 300 mg capsule Active hydrocortisone 1 % ointment Apply topically to face twice daily as needed, avoid contact with eyes 09/17/19 Active lidocaine (LIDODERM) 5 % patch Place 1 patch onto the skin daily. Remove & Discard patch within 12 hours or as directed by 11/03/19 Active aluminum-magnesium hydroxide-simethic one (MAALOX) 200-200-20 mg/5 mL suspension Take 15 mL by mouth 4 times daily as needed for Other. 06/12/19 24 Active methocarbamoL (ROBAXIN) 500 mg tablet Take 2 tablets (1,000 mg total) by mouth 4 (four) times a day. 11/03/19 21 Active montelukast (SINGULAIR) 10 mg tablet Every Evening Active naproxen (NAPROSYN) 500 mg tablet Take 1 tablet (500 mg total) by mouth 2 (two) times a day with meals. 11/03/19 21 Active ondansetron ODT (ZOFRAN-ODT) 4 mg disintegrating tablet Take 1 Tablet by mouth every 8 hours as needed for Nausea. 10/21/19 24 Active OXcarbazepine (TRILEPTAL) 300 mg tablet Take 3 Tabs by mouth daily. 10/04/19 20 Active pantoprazole (PROTONIX) 40 mg EC tablet Take 1 Tablet by mouth daily. 12/21/19 24 Active phenazopyridine (PYRIDIUM) 100 mg tablet Take 1 Tablet by mouth 3 times daily as needed for Pain for up to 5 days. 07/08/19 24 Active psyllium (Daily Fiber, psyllium-aspart,) 3.4 gram packet Take 1 Packet by mouth daily. 04/08/19 23 Active simethicone (MYLICON,GAS-X) 125 mg capsule Take 1 Capsule by mouth 2 times daily as needed (bloating). 06/12/19 24 Active tiotropium (SPIRIVA) 18 mcg per inhalation capsule Daily Active SUMAtriptan (IMITREX) 50 mg tablet Take 1 tab at onset of headache and may repeat with second tab if not improving after 2 hours, if needed for headaches. Do not exceed 3 doses per week 07/03/19 23 Active traZODone (DESYREL) 50 mg tablet Take 50 mg by mouth at bedtime. 10/04/19 20 Active Lactobacillus combination no.8 (ADULT PROBIOTIC ORAL) Take 1 Cap by mouth daily. - Oral 06/11/19 17 Active linaCLOtide (Linzess) 290 mcg capsule Take 1 capsule (290 mcg total) by mouth 1 (one) time each day before breakfast. 30 capsule 2 09/13/19 25 Active Active Problems Problem Noted Date Diagnosed Date Bipolar disorder 02/19/2024 Overview (02/19/2024): clinical support [facility] History of COVID-19 11/21/2021 Overview (02/19/2024): 06/19/21 and 11/21/21 Insomnia 04/09/2021 Lab test negative for COVID-19 virus 04/07/2020 Moderate persistent asthma without complication 07/06/2019 Gastroesophageal reflux disease 11/15/2018 Overview (02/19/2024): EGD on 12/08/19 normal Perennial allergic rhinitis 02/24/2018 Migraine 12/22/2017 Obesity (BMI 30-39.9) 04/24/2017 Cervical disc herniation 01/24/2017 Snoring 12/30/2016 Overview (02/19/2024): 12/22/2016 Diagnostic Sleep Study did not reveal sleep apnea. Chronic constipation 02/20/2016 Internal and external hemorrhoids without compli cation 02/20/2016 Backache 09/02/2013 Overview (02/19/2024): Seen by dr haywood. 05/20-Small right posterior disc herniation at L2-3. Other findings as above. Kidney stone 07/21/2013 Microhematuria 07/21/2013 Neck pain 03/05/2013 Overview (02/19/2024): 02/16- mri c spine-Findings suggestive of muscle spasm. Multilevel bony and disc degenerative changes as described above more prominent at C6-7 level. A large left para midline herniation of the C6-7 disc compresses the left aspect of the spinal cord. No focal signal abnormalities within the cord. Additional findings at other levels. Please see details in the report. Dr haywood 04/28-ACDF performed by [facility] neurosurgery 10/27-abnormal EMG. 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 Evidence of chronic nonactive left C7 radiculopathy. Anxiety 09/27/2012 PTSD (post-traumatic stress disorder) 09/27/2012 Overview (02/19/2024): [facility] Vitamin D deficiency 02/27/2009 Overview (02/19/2024): 4876-3015 Not responding to Vit D 50,000 units Multiple thyroid nodules 06/16/2007 Overview (02/19/2024): Thyroid u/s done 07/12 Revealed single small nodule ; Pt sent leter to call in 1 year for repeat u/s 02/14- Stable small hypoechoic right lower pole thyroid nodule since 05/14. 03/17 stable-seen by dr cabrera Encounters Date Type Department Care Team Description 03/31/2025 Results Follow-Up Obstetrics and Gynecology - [address] [phone] Latia Nichols CNM 03/29/2025 9:30 AM EST Office Visit Obstetrics and Gynecology - [address] [phone] Latia Nichols CNM Screen for STD (sexually transmitted disease) (Primary Dx); Post-menopausal bleeding 03/29/2025 9:25 AM EST Lab Draw Station - [address] Screen for STD (sexually transmitted disease); Post-menopausal bleeding 03/27/2025 8:07 AM EST - 03/27/2025 11:59 PM EST [facility] [address] [phone] Encounter for screening mammogram for breast cancer Discharge Disposition: Home or Self Care from Last 3 Months Immunizations Immunization Administration Dates Next Due HPV, Quadrivalent 05/04/2007,12/30/2006,10/28/19 07 Hep B, Unspecified 02/26/2009 Influenza Quadravalent, MDCK , 0.5ml, preservative free (Flucelvax) 6mo and older 01/09/2020 Influenza trivalent, 0.5mL, preservative free (Fluarix; FluLaval; Fluzone) ages 6mo and older (Afluria) 3 years and older 12/20/2019,12/28/2015,12/28/2013,04/21,12/12/2011,01/31/2011 Influenza, Unspecified 02/03/2021,12/28/2013 Measles 04/30/2007 Mumps 04/30/2007 PPD Test 06/08/2019, 9,04/30/2007,12/02 Pfizer SARS-CoV-2 COVID-19, mRNA, LNP-S, preservative free 02/24/2021,02/03/2021 Pneumococcal polysaccharide 23 valent (Pneumovax 23) 2yo and older 05/17/2013 Rubella 04/30/2007 Tdap Tetanus diptheria acell ular pertussis (Boostrix; Adacel) 7yo and older 11/12/2017,04/30/2007 Varicella live (Varivax) 12m o and older 04/30/2007 Surgical History Surgery Date Site/Laterality Comments TUBAL LIGATION 2004 PROCEDURE: HISTORICAL TUBAL LIGATION TONSILLECTOMY 2000 PROCEDURE: HISTORICAL TONSILLECTOMY BLADDER SUSPENSION PROCEDURE: HISTORICAL BLADDER SUSPENSION NECK SURGERY PROCEDURE: HISTORICAL NECK SURGERY ADENOIDECTOMY PROCEDURE: HISTORICAL ADENOIDECTOMY FLEXIBLE SIGMOIDOSCOPY 2015 PROCEDURE: HISTORICAL FLEXIBLE SIGMOIDOSCOPY; COMMENT: Internal and external hemorrhoids UPPER GASTROINTESTINAL ENDOSCOPY 12/08/2019 PROCEDURE: TN UPPER GI ENDOSCOPY PERFORMED; COMMENT: normal COLONOSCOPY 11/18/2016 PROCEDURE: HISTORICAL COLONOSCOPY; COMMENT: Dr. Janet norris, repeat 5 years. NECK SURGERY 04/2022 PROCEDURE: HISTORICAL NECK SURGERY; COMMENT: herniated disc COLONOSCOPY 2021 PROCEDURE: HISTORICAL COLONOSCOPY; COMMENT: rpt 5 years NECK SURGERY PROCEDURE: HISTORICAL NECK SURGERY; COMMENT: cervical spinal fusion Medical History Medical History Date Comments Obesity, unspecified 11/27/2005 DX:Obesity, unspecified Unspecified asthma(493.90) 11/27/2005 DX:Un specified asthma(493.90) Bipolar disorder ([facility] V2 4, [facility] V28) DX:Bipolar disorder ([facility]); C OMMENT: clinical support [facility] Anxiety DX:Anxiety Depression DX:Depression False positive HIV serology DX:F alse positive HIV serology Chronic constipation 02/20/2016 DX:Chronic constipation Internal and external hemorr hoids without complication 02/20/2016 DX:Internal and external hemorrhoids without complication History of colonoscopy 11/18/2016 DX:Histor y of colonoscopy; COMMENT: Family history, repeat in 5 years CTS (carpal tunnel syndrome) DX: CTS (carpal tunnel syndrome) History of Helicobacter pylo ri infection 10/04/2018 DX:History of Helicobacter p ylori infection; COMMENT: successfully treated with a PrevPac (2018) Gastroesophageal reflux disease 11/15/2018 DX:Gastroesophageal reflux disease ASCUS with positive high ris k HPV cervical 09/21/2018 DX:ASCUS with positive high risk HPV cervical; COMMENT: 09/13/18 pap smear Colpo 10/26/18 - biopsies all negative Family history of colon canc er in father DX:Family history of colon c ancer in father Family history of colonic polyps DX:Family history of colonic polyps Cervical spondylosis without myelopathy DX:Cervical spondylosis without myelopathy Constipation DX:Constipation GERD (gastroesophageal reflux disease) DX:GERD (gastroesophageal reflux disease) Functional dyspepsia DX:Function al dyspepsia Family History Medical History Relation Name Comments Colon cancer Aunt dad's sis Asthma Daughter 1 Asthma Daughter 2 Asthma Daughter 3 No Known Problems Daughter 4 Colon cancer Father Colon cancer Father's side Other: pancreatic cancer Father's side Cataracts Maternal Grandmother Dementia Maternal Grandmother Diabetes Mother Hypertension Mother Lymphoma Mother's side grandmother Alzheimer's disease Other both gra ndmothers Alzheimer's disease Paternal Grandmother Nephrolithiasis Sister 1 Diabetes Sister 2 Hypertension Sister 2 Other: GI issues Sister 3 Blindness Neg Hx Glaucoma Neg Hx Macular degeneration Neg Hx Strabismus Neg Hx Relation Name Status Comments Aunt dad's sis Alive Daughter 1 Alive Daughter 2 Alive Daughter 3 Alive Daughter 4 Alive Father healthy Father's side Maternal Grandmother Alive Mother Alive Mother's side Other Paternal Grandmother Sister 1 Alive 3,healthy Sister 2 Alive Sister 3 Alive Social History Tobacco Use Types Packs/Day Years Used Date Smoking Tobacco: Never Smokeless Tobacco: Never Tobacco Cessation:Counseling Given: Not Answered Alcohol Use Standard Drinks/Week Comments Yes 0 (1 standard drink = 0.6 oz pur e alcohol) Comments No Sex and Gender Information Value Date Recorded Sex Assigned at Not on file Legal Sex Female 4:51 AM EST Gender Identity Not on file Sexual Orientation Not on file Obstetrics History Para Term AB IAB SAB Ectopic Multiple Livin g Live Births 4 4 4 4 Date Outcome GA Total Labor Labor/2nd/3rd Weight Sex Type Anes PTL Rona A1 A5 Name Clin Term Term Term Term Last Filed Vital Signs Vital Sign Reading Time Taken Comments Blood Pressure 122/76 03/29/2025 8:59 AM EST Pulse 74 03/29/2025 8:59 AM EST Temperature - - Respiratory Rate 16 03/29/2025 8:59 AM EST Oxygen Saturation 100% 11/24/2024 8:44 AM EDT Inhaled Oxygen Concentration - - Weight 65.9 kg (145 lb 3.2 oz) 03/29/2025 8:59 A M EST Height 157.5 cm (5' 2 ) 03/29/2025 8:59 AM EST Body Mass Index 26.56 03/29/2025 8:59 AM EST Plan of Treatment Upcoming Encounters Date Type Department Care Team (Late st Contact Info) Description 04/04/2025 9:45 AM EST Appointment Ultrasound - [address] [place] [address] 11/24/2025 8:40 AM EDT Office Visit Gastroenterology - [address] [facility] [address] [place] [phone] Diann Chavez NP [address] [place] [address] Health Maintenance Due Date Last Done Comments Drug Screen 1980 Non-Opioid Controlled Substance Agreement 1980 Hepatitis B Vaccines (2 of 3 - 19+ 3-dose series) 03/26/2009 02/26/2009 COVID-19 Vaccine (3 - Pfizer risk series) 03/24/2021 02/24/2021, 02/03/2021 Medicare Annual Wellness Visit 03/13/2022 Social Influencers of Health Screening 03/13/2022 Depression Screening 04/06/2024 06/04/2021 Influenza Vaccine (#1) 2024 , 02/03/2021, 01/09/2020, Additional history exists Colorectal Cancer Screening: Colonoscopy 01/09/2027 01/09/2022 Breast Cancer Screening 03/27/2027 03/27/20, 03/25/2024, 03/17/2023, Additional history exists DTaP,Tdap,and Td Vaccines (3 - Td or Tdap) 11/13/2027 11/12/2017, 04/30/2007 Cervical Cancer Screening: HPV 11/09/2028 11/10/2023 Cholesterol Screening (Lipid Panel) 06/29/2029 06/29/2024, 07/15/2023 RSV Immunization Adult Patients (1 - 1-dose 75+ series) 06/19/2055 Varicella Vaccines Aged Out 04/30/2007 No longer eligible based on patient's age to complete this topic HPV Vaccines Completed 05/04/2007, 12/06, 10/27/2006 Pneumococcal Vaccine: Pediatrics (0 to 5 Years) and At-Risk Patients (6 to 49 Years) Completed 11/20/2022, 05/17/2013 HIV Screening Completed 03/29/2025, 07/08/2023 Hepatitis C Screening Completed 03/29/2025 HIB Vaccines Aged Out No longer eligi ble based on patient's age to complete this topic Hepatitis A Vaccines Aged Out No long er eligible based on patient's age to complete this topic IPV Vaccines Aged Out No longer eligi ble based on patient's age to complete this topic MMR Vaccines Aged Out No longer eligi ble based on patient's age to complete this topic Meningococcal ACWY Vaccine Aged Out N o longer eligible based on patient's age to complete this topic Meningococcal B Vaccine Aged Out No l onger eligible based on patient's age to complete this topic RSV Immunization Patients Under 20 months Aged Out No longer eligible based on patient's age to complete this topic Procedures Procedure Name Priority Date/Time Associated Diagnosis Comments CHLAMYDIA TRACHOMATIS AND NEISSERIA GONORRHOEAE PCR Routine 03/29/2025 9:44 AM EST Screen for STD (sexually transmitted disease) FOLLICLE STIMULATING HORMONE Routine 03/29/2025 9:26 AM EST Post-menopausal bleeding TREPONEMA PALLIDUM ANTIBODY WITH REFLEX TO RPR AND PARTICLE AGGLUTINATION Routine 03/29/2025 9:26 AM EST Screen for STD (sexually transmitted disease) HIV 1, 2 ANTIBODY, P24 ANTIGEN WITH REFLEX TO DIFFERENTIATION Routine 03/29/2025 9:26 AM EST Screen for STD (sexually transmitted disease) HEPATITIS C ANTIBODY Routine 03/29/2025 9:26 AM EST Screen for STD (sexually transmitted disease) MG MAMMO DIGITAL SCREENING W MICHAEL BILAT Routine 03/27/2025 8:34 AM EST Encounter for screening mammogram for breast cancer LIPID PANEL WITH REFLEX TO DIRECT LDL Routine 06/29/2024 8:07 AM EDT Routine general medical examination at a health care facility Abnormal blood chemistry HPV Routine 11/10/2023 COLONOSCOPY Routine 01/09/2022 DEPRESSION SCREENING Routine 06/04/2021 from Last 3 Months or Most Recently Relevant to Health Maintenance Results * Chlamydia trachomatis and Neisseria gonorrhoeae molecular study (03/29/2025 9:44 AM EST) [facility] Neisseria gonorrhoeae PCR Negative Negative LAB MOLECULAR DIAGNOSTICS METHOD 03/29/2025 4:08 PM EST [facility] Chlamydia trachomatis PCR Negative Negative LAB MOLECULAR DIAGNOSTICS METHOD 03/29/2025 4:08 PM EST [facility] Swab Vaginal structure / Unknown Non-blood Collection / Unknown 03/29/2025 9:44 AM EST 03/29/2025 9:45 AM EST Latia Nichols CNM LAB MICROBIOLOGY - GENERAL O RDERABLES Final Result Performing Organization Address [facility]/ZIP Co de Phone Number [facility] [address] [place] [address], * Hepatitis C antibody (03/29/2025 9:26 AM EST) [facility] Hepatitis C Antibody Negative Negative 03/29/2025 12:48 PM EST [facility] Blood Venous blood specimen / Unknown Venipuncture / Unknown 03/29/2025 9:26 AM EST 03/29/2025 9:26 AM EST Latia Nichols CNM LAB BLOOD ORDERABLES Final R esult [facility] [address] [place] [address], [place] [phone] * HIV 1,2 antibody, p24 antigen with reflex to differentiation (03/29/2025 9:26 AM EST) [facility] HIV Combo AB/AG Negative Negative 03/29/2025 12:41 PM EST [facility] Blood Venous blood specimen / Unknown Venipuncture / Unknown 03/29/2025 9:26 AM EST 03/29/2025 9:26 AM EST Narrative [facility] - 03/29/2025 12:41 PM EST This assay is a 4th generation assay allowing for earlier detection of HIV infection by detecting the presence of the HIV-1 p24 antigen as well as the traditional antibodies to HIV type 1 (including group O) and type 2. Use of a 4th generation assay is the current CDC recommendation for HIV screening. Latia IRAHETA LAB BLOOD ORDERABLES Final R esult [facility] [address] [place] [address], [place] [phone] * Treponema pallidum antibody with reflex to RPR and particle agglutination (03/29/2025 9:26 AM EST) [facility] T. Pallidum Antibodies Negative Negative 03/29/2025 12:31 PM EST [facility] Blood Venous blood specimen / Unknown Venipuncture / Unknown 03/29/2025 9:26 AM EST 03/29/2025 9:26 AM EST Latia Nichols [facility] LAB BLOOD ORDERABLES Final R esult [facility] [address] [place] [address], [place] [phone] * Follicle stimulating hormone (03/29/2025 9:26 AM EST) Follicle Stimulating Hormone 24.7 See Comment mIU/mL 03/29/2025 2:24 PM EST [facility] Blood Venous blood specimen / Unknown Venipuncture / Unknown 03/29/2025 9:26 AM EST 03/29/2025 9:26 AM EST Narrative [facility] - 03/29/2025 2:24 PM EST FSH Female Reference Ranges (mIU/mL): Menstruating: Follicular phase: 2.5 - 10.2 Mid-cycle phase: 3.4 - 33.4 Luteal phase: 1.5 - 9.1 Post-menopausal: 23.0 - 116.3 : < 0.3 us Latia IRAHETA LAB BLOOD ORDERABLES Final R esult [facility] [address] [place] [address], * MG Mammo Digital Screening w Michael bilat (03/27/2025 8:34 AM EST) Anatomical Region Laterality Modality Breast Bilateral Mammography 03/27/2025 3:19 PM EST Impressions 03/27/2025 3:25 PM EST No mammographic evidence of malignancy. No suspicious interval change. A negative mammogram in the presence of a clinically suspicious palpable abnormality does not preclude the possibility of malignancy or alter the indications for biopsy. ASSESSMENT: BI-RADS 2: BENIGN RECOMMENDATION(S): 1: Routine screening mammogram BILATERAL in 1 year. [facility] [address] [place], [address] -------- FINAL REPORT -------- Dictated By: Filemon White Dictated Date: 03/27/2025 15:19 ET Assigned Physician: Filemon White Reviewed and Electronically Signed By: Filemon White Signed Date: 03/27/2025 15:25 ET Workstation ID: [id number] Transcribed By: Self Edit Transcribed Date: 03/27/2025 15:19 ET Narrative 03/27/2025 3:25 PM EST EXAM: SCREENING MAMMOGRAPHY, BILATERAL HISTORY: SCREENING. No additional history. COMPARISON: 03/17/23, 03/10/22, 10/31/20 TECHNIQUE: Synthesized CC and MLO projections of each breast. Tomosynthesis of each breast in the CC and MLO projections. ADDITIONAL IMAGING: None Computer-aided detection was employed with the iCAD ProFound AI 3-D. TISSUE DENSITY: There are scattered areas of fibroglandular density. (BI-RADS category B) FINDINGS: RIGHT BREAST: No suspicious mass. No suspicious calcification. No distortion. No additional suspicious right breast findings LEFT BREAST: No suspicious mass. No suspicious calcification. No distortion. Opaque material likely in the skin of the left axilla. No additional suspicious left breast findings Procedure Note Filemon White MD - 03/27/2025 EXAM: SCREENING MAMMOGRAPHY, BILATERAL HISTORY: SCREENING. No additional history. COMPARISON: 03/17/23, 03/10/22, 10/31/20 TECHNIQUE: Synthesized CC and MLO projections of each breast.Tomosynthesis of each breast in the CC and MLO projections. ADDITIONAL IMAGING: None Computer-aided detection was employed with the iCAD ProFound AI 3-D. TISSUE DENSITY: There are scattered areas of fibroglandular density.(BI-RADS category B) FINDINGS: RIGHT BREAST: No suspicious mass. No suspicious calcification. No distortion. Noadditional suspicious right breast findings LEFT BREAST: No suspicious mass. No suspicious calcification. No distortion. Opaque material likely in the skin of the left axilla. No additional suspicious left breast findings IMPRESSION: No mammographic evidence of malignancy. No suspicious interval change. A negative mammogram in the presence of a clinically suspicious palpableabnormality does not preclude the possibility of malignancy or alter theindications for biopsy. ASSESSMENT: BI-RADS 2: BENIGN RECOMMENDATION(S): 1: Routine screening mammogram BILATERAL in 1 year. [facility] location[facility] [address], [address] -------- FINAL REPORT -------- Dictated By: Filemon White Dictated Date: 03/27/2025 15:19 ET Assigned Physician: Filemon White Reviewed and Electronically Signed By: Filemon White Signed Date: 03/27/2025 15:25 ET Workstation ID: [id number] Transcribed By: Self Edit Transcribed Date: 03/27/2025 15:19 ET us Self Referral Sppl IMG BI PROCEDURES Final Resul t * (ABNORMAL) Lipid panel with reflex to direct LDL (06/29/2024 8:07 AM EDT) Cholesterol 212(H) 0 - 200 mg/dL LAB CHEMISTRY METHOD 06/29/2024 12:35 PM EDT [facility] Triglycerides 94 0 - 150 mg/dL LAB CHEMISTRY METHOD 06/29/2024 12:35 PM EDT [facility] HDL 67 >=40 mg/dL LAB CHEMISTRY METHOD 06/29/2024 12:35 PM EDT [facility] LDL Calculated 126(H) 0 - 100 mg/dL LAB CHEMISTRY METHOD 06/29/2024 12:35 PM EDT [facility] VLDL Cholesterol Yung 18.8 mg/dL LAB CHEMISTRY METHOD 06/29/2024 12:35 PM EDT [facility] Non HDL Chol. (LDL+VLDL) 145(H) <145 mg/dL LAB CHEMISTRY METHOD 06/29/2024 12:35 PM EDT [facility] Chol/HDL Ratio 3.2 0.0 - 4.4 LAB CHEMISTRY METHOD 06/29/2024 12:35 PM EDT [facility] Blood Venous blood specimen / Unknown Venipuncture / Unknown 06/29/2024 8:07 AM EDT 06/29/2024 9:46 AM EDT us Evelin Heard OUTDOOR GUIDE LAB BLOOD ORDERABLES Final Re sult [facility] [address] [place] [address], [place] [phone] * Cervical Cancer Screening: HPV (11/10/2023) Pathologist [facility] Cervical Cancer Screening: HPV abstracted, negative Historical Provider HEALTH MAINTENANCE Final Result * Colonoscopy (01/09/2022) Pathologist [facility] Colonoscopy no interpretation , abstracted Anatomical Region Laterality Modality Other Historical Provider HEALTH MAINTENANCE Final Result * Depression Screening (06/04/2021) Pathologist [facility] Depression Screening abstracted Historical Provider HEALTH MAINTENANCE Final Result from Last 3 Months or Most Recently Relevant to Health Maintenance Insurance [employer] Member Subscriber Plan / Payer (Ef fective 2021-Present) Name:ANGELA OSBORNE Relation to Subscriber:Self Name:Angela Osborne Payer ID:[id number] Group ID:[id number] Type:Not on file Address: [place] [address] [place] [id number] Care Teams Network Support Technician Relationship Specialty Start Date End Date Evelin Heard NP [address] [place] [id number] PCP - General Nurse Practitioner 07/12/24
--- OUTSIDE RECORDS SUMMARY | 2025-04-03 11:40 | XMS_ITS | Clinical Summary ---
Author Organization [facility] Prior to 09/03/24 Address [address] [place] [address] Care Team Providers Care [employer] Project Manager Name Role Phone Unavailable Primary Care Provider Unavailabl e Medications Medication Sig Dispensed Refills Start Date End Date Status methocarbamol (ROBAXIN) 500 MG tablet Take 2 tablets (1,000 mg total) by mouth 4 (four) times a day. 40 tablet 0 11/02/2020 Active lidocaine (LIDODERM) 5 % Place 1 patch onto the skin daily. Remove & Discard patch within 12 hours or as directed by MD 30 patch 0 11/02/2020 Active naproxen (NAPROSYN) 500 MG tablet Take 1 tablet (500 mg total) by mouth 2 (two) times a day with meals. 14 tablet 0 11/02/2020 Active Social History Tobacco Use Types Packs/Day Years Used Date Smoking Tobacco: Never Assessed Sex and Gender Information Value Date Recorded Sex Assigned at Female 11/02/2020 7:26 PM EDT Gender Identity Not on file Sexual Orientation Not on file Job Start Date Occupation Industry Not on file Not on file Not on file Last Filed Vital Signs Vital Sign Reading Time Taken Comments Blood Pressure 127/80 11/02/2020 7:10 PM EDT Pulse 86 11/02/2020 7:10 PM EDT Temperature 36.6 C (97.9 F) 11/02/2020 7:10 PM EDT Respiratory Rate 16 11/02/2020 7:10 PM EDT Oxygen Saturation 99% 11/02/2020 7:10 PM EDT Inhaled Oxygen Concentration - - Weight 73.9 kg (163 lb) 11/02/2020 7:10 PM EDT Height 157.5 cm (5' 2 ) 11/02/2020 7:10 PM EDT Body Mass Index 29.81 11/02/2020 7:10 PM EDT Plan of Treatment Not on file
--- OUTSIDE RECORDS SUMMARY | 2025-04-03 11:40 | XMS_ITS | Patient Health Record ---
Author Organization [facility] Address [address] [place] [address] Care Team Providers Care Elevators Inspector Name Role Phone TALIA DEXTER Unavailable [phone] ANTELMO BURKETT Unavailable [phone] Allergies No Known Allergies Results Component Value Reference Range Flag Notes MG MAMMO DIGITAL SCREENING W MICHAEL BILAT Reviewed date:03/27/2025 04:19:38 PM Interpretation: Performing Lab: Notes/Report: See Note [facility], a member of [facility] EXAM: SCREENING MAMMOGRAPHY, BILATERAL HISTORY: SCREENING. No [...] year. Mammography location: [facility] at [address], [address] -------- FINAL REPORT -------- Dictated By: Filemon White Dictated Date: 03/27/2025 15:19 ET Assigned Physician: Filemon White Reviewed and Electronically Signed By: Filemon White Signed Date: 03/27/2025 15:25 ET Workstation ID: [id number] Transcribed By: Self Edit Transcribed Date: 03/27/2025 15:19 ET CHLAMYDIA TRACHOMATIS AND NE ISSERIA GONORRHOEAE MOLECULAR STUDY Reviewed date:03/30/2025 11:32:44 AM Interpretation: Performing Lab: Notes/Report: Neisseria gonorrhoeae PCR Negative Negative Chlamydia trachomatis PCR Negative Negative HEPATITIS C ANTIBODY Reviewed date:03/30/2025 11:32:44 AM Interpretation: Performing Lab: Notes/Report: Hepatitis C Antibody Negative Negative HIV 1, 2 ANTIBODY, P24 ANTIG EN WITH REFLEX TO DIFFERENTIATION Reviewed date:03/30/2025 11:32:44 AM Interpretation: Performing Lab: Notes/Report: This assay is a 4th generation assay allowing for earlier detection of HIV infection by detecting the presence of the HIV-1 p24 antigen as well as the traditional antibodies to HIV type 1 (including group O) and type 2. Use of a 4th generation assay is the current CDC recommendation for HIV screening. HIV Combo AB/AG Negative Negative URINALYSIS WITH REFLEX MICRO SCOPIC Reviewed date:06/29/2024 10:25:27 AM Interpretation: Performing Lab: Notes/Report: Specific [place] Urine 1.015 1.003-1.030 pH, Urine 7.5 5.0-8.0 pH Leukocytes, Urine Negative Negative Nitrite, Urine Negative Negative Protein, Urine Negative <=Trace mg/dL Glucose, Urine Negative Negative mg/dL Ketones, Urine Negative Negative mg/dL Urobilinogen, Urine 1.0 0.2-1.0 mg/dL Bilirubin, Urine Negative Negative Blood, Urine Negative Negative INTERFERON GAMMA INTERPRETAT ION Reviewed date:10/27/2024 10:53:32 AM Interpretation: Performing Lab: Notes/Report: Quantiferon Plus Interpretation Negative Negative FOLLICLE STIMULATING HORMONE Reviewed date:03/30/2025 11:32:44 AM Interpretation: Performing Lab: Notes/Report: FSH Female Reference Ranges (mIU/mL): Menstruating: Follicular phase: 2.5 - 10.2 Mid-cycle phase: 3.4 - 33.4 Luteal phase: 1.5 - 9.1 Post-menopausal: 23.0 - 116.3 : < 0.3 Follicle Stimulating Hormone 24.7 See Comment mIU/mL TREPONEMA PALLIDUM ANTIBODY WITH REFLEX TO RPR AND PARTICLE AGGLUTINATION Reviewed date:03/30/2025 11:32:51 AM Interpretation: Performing Lab: Notes/Report: T. Pallidum Antibodies Negative Negative HEMOGLOBIN A1C Reviewed date:06/29/2024 02:35:21 PM Interpretation: Performing Lab: Notes/Report: Hemoglobin A1C 5.0 <6.5 % Mean Bld Glu Estim. 97 COMPREHENSIVE METABOLIC PANE L Reviewed date:06/29/2024 01:29:20 PM Interpretation: Performing Lab: Notes/Report: Sodium 137 133-145 mmol/L Potassium 3.7 3.5-5.5 mmol/L Chloride 104 96-110 mmol/L CO2 29 21-32 mmol/L Anion Gap 4 3-11 Glucose 71 70-100 mg/dL BUN 9 5-25 mg/dL Creatinine 0.61 0.50-1.10 mg/dL eGFR 113 >=60 mL/min/1.73m2 Calcul ation based on the Chronic Kidney Disease Epidemiology Collaboration (CKD-EPI) equation refit without adjustment for race. BUN/Creatinine Ratio 14.8 Calcium 8.6 8.5-10.5 mg/dL AST (SGOT) 25 10-42 unit/L ALT (SGPT) 23 10-60 unit/L Alkaline Phosphatase 139 42-121 unit/L H Total Protein 6.8 6.0-8.0 g/dL Albumin 3.3 3.2-5.0 g/dL Total Bilirubin 0.4 0.0-1.4 mg/dL THYROID STIMULATING HORMONE Reviewed date:06/29/2024 02:16:14 PM Interpretation: Performing Lab: Notes/Report: TSH 2.65 0.40-4.00 mcIU/mL VITAMIN D 25 HYDROXY Reviewed date:06/29/2024 02:16:14 PM Interpretation: Performing Lab: Notes/Report: Vit D, 25-Hydroxy 30.2 30.0-80.0 ng/mL LIPID PANEL WITH REFLEX TO D IRECT LDL Reviewed date:06/29/2024 01:29:20 PM Interpretation: Performing Lab: Notes/Report: Cholesterol 212 0-200 mg/dL H Triglycerides 94 0-150 mg/dL HDL 67 >=40 mg/dL LDL Calculated 126 0-100 mg/dL H VLDL Cholesterol Yung 18.8 Non HDL Chol. (LDL+VLDL) 145 <145 mg/dL H Chol/HDL Ratio 3.2 0.0-4.4 CBC WITH AUTO DIFFERENTIAL Reviewed date:06/29/2024 10:15:42 AM Interpretation: Performing Lab: Notes/Report: WBC 6.8 4.8-10.8 K/mcL RBC 4.80 3.80-4.80 M/mcL Hemoglobin 12.5 11.5-16.0 g/dL Hematocrit 40.3 35.0-47.0 % MCV 83.3 79.0-98.0 FL MCH 25.8 27.0-32.0 pcg L MCHC 31.0 32.0-37.0 g/dL L RDW 13.7 11.0-15.0 % Platelets 265 130-400 K/mcL MPV 9.9 7.0-11.0 FL NRBC 0.0 <1.0 % NRBC Absolute 0.00 <0.10 K/mcL Neutrophils Relative 38.4 Lymphocytes Relative 52.3 Monocytes Relative 6.1 Eosinophils Relative 2.5 Basophils Relative 0.6 Immature Granulocytes Relative 0.1 Neutrophils Absolute 2.59 1.50-7.00 K/mcL Lymphocytes Absolute 3.53 1.00-5.00 K/mcL Monocytes Absolute 0.41 0.20-1.00 K/mcL Eosinophils Absolute 0.17 0.00-0.50 K/mcL Basophils Absolute 0.04 0.00-0.20 K/mcL Immature Granulocytes Absolute 0.01 0.00-0.03 K/mcL Reason For Referral Reason Pt has appt with kemar carvalho allergy requesting referral to be faxed Diagnosis 1 Allergy, sequela (T7 8.40XS) Referral Organization [facility] [address] Referring Provider First Name TALIA Referring Provider Last Name ISACC Referring Provider Speciality Internal M edicine Referred Provider Specialty Allergy/Immu nology General Notes [address] [place] [address], Fax: , [facility] Allergy Clinical Notes Rosemary Lambert 04/28 11:31:30 AM >, Chele hilario Redena 05/05/2024 02:12:20 PM > Scheduled for 05/31 at 9:15 am. Pt aware Referral Priority Routine Medications Medication SIG (Take, Route, Frequency, Duration) Notes Start Date End Date Status Zepbound 5 MG/0.5ML Solution Auto-injector 5mg weekly Subcutaneous weekly; Duration: 30 days Active Omeprazole 40 MG Capsule Delayed Release Oral; Duration: 90 Days A ctive Gabapentin 300 MG Capsule Oral; Duration: 30 Days Active clonazePAM 1 MG Tablet Oral; Duration: 30 Days Active Pantoprazole Sodium 40 MG Tablet Delayed Release 1 tablet 1/2 to 1 hour before morning meal Orally Once a day; Duration: 90 days 12/14/2024 Active Albuterol Sulfate HFA 108 (90 Base) MCG/ACT Aerosol Solution 1 puff as needed shortness of breath/wheezing Inhalation every 4 hrs; Duration: 30 days 06/28/2024 Active Spiriva Respimat 1.25 MCG/ACT Aerosol Solution Inhalation; Duration: 30 Days Active Wixela Inhub 500-50 MCG/ACT Aerosol Powder Breath Activated 1 puff Inhalation daily; Duration: 30 days Active Dupixent 200 MG/1.14ML Solution Prefilled Syringe Subcutaneous; Duration: 28 Days Active Ondansetron 4 MG Tablet Disintegrating 1 tablet on the tongue and allow to dissolve Orally Once a day; Duration: 30 day(s) 12/14/2024 Active Linzess 290 MCG Capsule [address] 30 minutes before the first meal of the day on an empty stomach Orally Once a day; Duration: 30 days Active [id number]-Uhtbcw 1 MG Tablet Chewable as directed Orally Active Ondansetron HCl 4 MG Tablet 1 tablet as needed Orally Once a day; Duration: 30 days 07/13/2024 Active Amoxicillin 500 MG Capsule 1 capsule Ora lly every 8 hrs; Duration: 7 days 11/18/2024 Active Fluticasone Propionate 50 MCG/ACT Suspension Nasal; Duration: 90 Days Active Naproxen 500 MG Tablet 1 tablet with jorge d or milk as needed Orally every 12 hrs; Duration: 30 days Active Social History Tobacco Use: Social History Observation Description Date Details (start date - stop date) Never Smoker NA - NA Social History Drugs/Alcohol: Social Info Question Answer Notes Drugs Have you used drugs other than those for medical reasons in the past 12 months? No Tobacco Use: Social Info Question Answer Notes Tobacco Use/Smoking Are you a nonsmoker Additional Details Category Social Info Options Details Drugs/Alcohol: Do you smoke marijuana? De nies Do you drink alcohol? No Section Notes: [id number] Problems Problem Type SNOMED Code ICD Code Onset Dates Problem Status W/U Status Risk Notes Problem Obesity due to excess calories (786180583) Other obesity due to excess calories (E66.09) Active confirmed Problem Lipid screening (031537180) Encounter for screening for lipoid disorders (Z13.220) Active confirmed Problem Adult health examination (283702282) Adult general medical exam (Z00.00) Active confirmed Problem Diabetes mellitus screening (862642023) Diabetes mellitus screening (Z13.1) Active confirmed Problem Body mass index 35.00 to 39.99 (948225511160535) Body mass index [BMI] 36.0-36.9, adult (Z68.36) Active confirmed Problem Body mass index 35.00 to 39.99 (769852882472342) Body mass index [BMI] 38.0-38.9, adult (Z68.38) Active confirmed Problem Obese class II (443302356599092) BMI 35.0-35.9,adult (Z68.35) Active confirmed Problem Obese class I (488896477120832) BMI 33.0-33.9,adult (Z68.33) Active confirmed Problem BMI 30+ - obesity (457044604) BMI 32.0-32.9,adult (Z68.32) Active confirmed Problem Vitamin B>12< deficiency anaemia (82083438) Anemia due to vitamin B12 deficiency, unspecified B12 deficiency type (D51.9) Active confirmed Problem Body mass index 30.00 to 34.99 (510577670916456) BMI 31.0-31.9,adult (Z68.31) Active confirmed Problem Body mass index 30.00 to 34.99 (267788863770834) BMI 34.0-34.9,adult (Z68.34) Active confirmed Problem Overweight (738481075) Overweight (BMI 25.0-29.9) (E66.3) Active confirmed Problem Gastroesophageal reflux disease (509686574) GERD without esophagitis (K21.9) Active confirmed Problem Bipolar disorder (23687571) Bipolar disorder with depression (F31.9) Active confirmed Problem Chronic obstructive asthma co-occurrent with acute exacerbation of asthma (disorder) (99308931636014413) Chronic obstructive asthma (J44.9) Active confirmed Problem Avitaminosis D (45245120) Avitaminosis D (E55.9) Active confirmed Problem Allergic disposition (finding) (186857195) Allergy, sequela (T78.40XS) Active confirmed Problem Endocrine/metabolic screening (002878320) Encounter for screening for endocrine disorder (Z13.29) Active confirmed Problem Generalized anxiety disorder (52341126) CLEMENCIA (generalized anxiety disorder) (F41.1) Active confirmed Problem Attention deficit hyperactivity disorder (936930520) Adult ADHD (F90.9) Active confirmed Vital Signs Heart Rate 81 /min 02/22/2025 Oximetry 98 % 02/22/2025 Blood pressure diastolic 80 mm Hg 02/22/2025 Height 62 in 02/22/2025 Blood pressure systolic 120 mm Hg 02/22/2025 Weight 146.4 lbs 02/22/2025 BMI 26.77 kg/m2 02/22/2025 Encounters Encounter Location Date Provider Diagnosis [facility] [address] [address] 05/11/2024 TALIA DEXTER Other obesity due to excess calories E66.09 ; BMI 31.0-31.9,adult Z68.31 ; Dietary counseling and surveillance Z71.3 ; Chronic obstructive asthma J44.9 ; GERD without esophagitis K21.9 ; Bipolar disorder with depression F31.9 ; CLEMENCIA (generalized anxiety disorder) F41.1 and Adult ADHD F90.9 [facility] [address] 06/28/2024 TALIA DEXTER Annual physical exam Z00.00 ; Encounter for screening for depression Z13.31 ; Encounter for screening for other disorder Z13.89 ; Advanced directives, counseling/discussion Z71.89 ; Other obesity due to excess calories E66.09 ; BMI 31.0-31.9,adult Z68.31 ; Chronic obstructive asthma J44.9 ; GERD without esophagitis K21.9 ; Bipolar disorder with depression F31.9 ; CLEMENCIA (generalized anxiety disorder) F41.1 and Adult ADHD F90.9 [facility] [address] 09/12/2024 TALIA BORHOT Overweight (BMI 25.0-29.9) E66.3 ; BMI 28.0-28.9,adult Z68.28 ; Dietary counseling and surveillance Z71.3 ; Chronic obstructive asthma J44.9 ; GERD without esophagitis K21.9 ; Bipolar disorder with depression F31.9 ; CLEMENCIA (generalized anxiety disorder) F41.1 ; Adult ADHD F90.9 and Encounter for examination of blood pressure without abnormal findings Z01.30 [facility] [address] 10/26/2024 TALIA BORHOT Overweight (BMI 25.0-29.9) E66.3 ; BMI 28.0-28.9,adult Z68.28 ; Dietary counseling and surveillance Z71.3 ; Bipolar disorder with depression F31.9 ; Chronic obstructive asthma J44.9 ; GERD without esophagitis K21.9 ; CLEMENCIA (generalized anxiety disorder) F41.1 ; Adult ADHD F90.9 ; Encounter for examination of blood pressure without abnormal findings Z01.30 and Screening for tuberculosis Z11.1 [facility] [address] [address] 11/18/2024 TALIA BORHOT Acute right otitis m edia H66.91 [facility] [address] 02/22/2025 TALIA BORHOT Overweight (BMI 25.0-29.9) E66.3 ; BMI 28.0-28.9,adult Z68.28 ; Dietary counseling and surveillance Z71.3 ; Bipolar disorder with depression F31.9 ; Chronic obstructive asthma J44.9 ; GERD without esophagitis K21.9 ; CLEMENCIA (generalized anxiety disorder) F41.1 and Adult ADHD F90.9 [facility] [address] [address] 04/15/2024 TALIA BORHOT [facility] [address] 04/26/2024 TALIA BORHOT [facility] [address] [place] [address] 04/26/2024 TALIA BORHOT [facility] [address] [place] [address] 05/09/2024 DEISYKILEY KWADWO [facility] [address] [place] [address] 05/09/2024 TALIA BORHOT [facility] [address] [place] [address] 05/09/2024 TALIA BORHOT [facility] [address] [place] [address] 05/25/2024 TALIA BORHOT [facility] [address] [place] [address] 07/04/2024 TALIA BORHOT [facility] [address] [place] [address] 07/13/2024 TALIA BORHOT [facility] [address] [place] [address] 07/13/2024 TALIA BORHOT [facility] [address] [place] [address] 07/19/2024 TALIA BORHOT [facility] [address] [place] [address] 07/26/2024 TALIA BORHOT [facility] [address] [place] [address] 09/12/2024 TALIA BORHOT [facility] [address] [place] [address] 10/20/2024 TALIA BORHOT [facility] [address] [place] [address] 10/20/2024 TALIA BORHOT [facility] [address] [place] [address] 11/18/2024 TALIA BORHOT [facility] [address] [place] [address] 12/14/2024 TALIA BORHOT [facility] [address] [place] [address] 12/09/2024 TALIA BORHOT [facility] [address] [place] [address] 12/09/2024 TALIA DEXTER Assessments Encounter Date Diagnosis (ICD Code) Assessment Notes Treatment Notes Treatment Clinical Notes Section Notes 05/11/2024 Other obesity due to excess calories (ICD-10 - E66.09) #Weight Management 05/11/2024 CEE injection today Will try for approval for Zepbound as she was thriving on Mounjaro previously RMV paperwork today for plactari Will see her back in the spring for labs and MWV Total time spent today was 30 minutes [...] software and direct typing Please excuse inadvertent post adoption coordinator or typing errors, or uncorrected word substitutions Although every attempt has been made by the provider to proofread this document, occasional misspellings and typographical errors may still be present Due to the previous pandemic, and the use of personal protective equipment (PPE) This may decrease voice recognition accuracy Inadvertent post adoption coordinator errors may occur 05/11/2024 BMI 31.0-31.9,adult (ICD-10 - Z68.31) #Weight Management 05/11/2024 CEE injection today Will try for approval for Zepbound as she was thriving on unjaro previously RMV paperwork today for edinson Will see her back in the spring for labs and MWV Total time spent today was 30 minutes [...] software and direct typing Please excuse inadvertent post adoption coordinator or typing errors, or uncorrected word substitutions Although every attempt has been made by the provider to proofread this document, occasional misspellings and typographical errors may still be present Due to the previous pandemic, and the use of personal protective equipment (PPE) This may decrease voice recognition accuracy Inadvertent post adoption coordinator errors may occur 06/28/2024 Encounter for screening for depression (ICD-10 - Z13.31) Acute Concerns/Problem List: 06/28/2024 CEE injection Will try for approval for Zepbound as she was thriving on Mounjaro previously Likely viral URI, Albuterol inhaler refill sent to pharmacy. Patient will have labs done to discuss at next visit. [employer] and [employer] forms signed and on file. Recommend follow-up with psychiatry for stimulant medication for ADHD. Recommend follow-up with pot fireman for menopausal hormone screening. Total time spent [...] software and direct typing Please excuse inadvertent post adoption coordinator or typing errors, or uncorrected word substitutions Although every attempt has been made by the provider to proofread this document, occasional misspellings and typographical errors may still be present Due to the previous pandemic, and the use of personal protective equipment (PPE) This may decrease voice recognition accuracy Inadvertent post adoption coordinator errors may occur 06/28/2024 Annual physical exam (ICD-10 - Z00.00) Acute Concerns/Problem List: 06/28/2024 CEE injection Will try for approval for Zepbound as she was thriving on Mounjaro previously Likely viral URI, Albuterol inhaler refill sent to pharmacy. Patient will have labs done to discuss at next visit. [facility] and [employer] forms signed and on file. Recommend follow-up with psychiatry for stimulant medication for ADHD. Recommend follow-up with pot fireman for menopausal hormone screening. Total time spent [...] software and direct typing Please excuse inadvertent post adoption coordinator or typing errors, or uncorrected word substitutions Although every attempt has been made by the provider to proofread this document, occasional misspellings and typographical errors may still be present Due to the previous pandemic, and the use of personal protective equipment (PPE) This may decrease voice recognition accuracy Inadvertent post adoption coordinator errors may occur 09/12/2024 Overweight (BMI 25.0-29.9) (ICD-10 - E66.3) #Weight Management 09/12/2024 CEE injection Will try for approval for Zepbound as she was thriving on Mounjaro previously Recommend follow-up with psychiatry for stimulant medication for ADHD. Recommend follow-up with pot fireman for menopausal hormone screening. Total time spent today was 30 minutes of which greater than 50% was spent on coordinating and counseling Patient has been found to be overweight with a BMI of (28). Patient has overweight class per BMI standards Of note, some information is being carried forward from prior records for informational purposes only and is being cited so that efficiency, safety and quality of the patient's care is not compromised This note was prepared using voice recognition software and direct typing Please excuse inadvertent post adoption coordinator or typing errors, or uncorrected word substitutions Although every attempt has been made by the provider to proofread this document, occasional misspellings and typographical errors may still be present Due to the previous pandemic, and the use of personal protective equipment (PPE) This may decrease voice recognition accuracy Inadvertent post adoption coordinator errors may occur 10/26/2024 Overweight (BMI 25.0-29.9) (ICD-10 - E66.3) Acute Concerns/Problem List: 10/26/2024 Work note provided today Will check a QuantiFERON-TB gold Unfortunately remains off of weight loss drugs Patient is following up with psychiatry for stimulant medication for ADHD. Patient has appointment at [place] with pot fireman for menopausal hormone screening. See her quarterly Total time spent today was 30 minutes of which greater than 50% was spent on coordinating and counseling Patient has been found to be overweight with a BMI of (28). Patient has overweight class per BMI standards Of note, some information is being carried forward from prior records for informational purposes only and is being cited so that efficiency, safety and quality of the patient's care is not compromised This note was prepared using voice recognition software and direct typing Please excuse inadvertent post adoption coordinator or typing errors, or uncorrected word substitutions Although every attempt has been made by the provider to proofread this document, occasional misspellings and typographical errors may still be present Due to the previous pandemic, and the use of personal protective equipment (PPE) This may decrease voice recognition accuracy Inadvertent post adoption coordinator errors may occur 11/18/2024 Acute right otitis media (ICD-10 - H66.91) Discussed [id number] methods like decongestants and anti-inflammator ies Will try amoxicillin for a week Antibiotic stewardship is the effort to measure and improve how antibiotics are prescribed by clinicians and used by patients. Improving antibiotic prescribing and use is critical to effectively treat infections via evidenced based practice, protect patients from harms caused by unnecessary antibiotic use, and combat antibiotic resistance. What is an example of antibiotic stewardship? That includes prescribing antibiotics only when they are needed (i.e., for bacterial infections, not viral ones), prescribing the appropriate antibiotics for the diagnosed infection, and prescribing the right dose and duration of antibiotic treatment, among other things. Of note, some information is being carried forward from prior records for informational purposes only and is being cited so that efficiency, safety and quality of the patient's care is not compromised This note was prepared using voice recognition software and direct typing Please excuse inadvertent post adoption coordinator or typing errors, or uncorrected word substitutions Although every attempt has been made by the provider to proofread this document, occasional misspellings and typographical errors may still be present Due to the previous pandemic, and the use of personal protective equipment (PPE) This may decrease voice recognition accuracy Inadvertent post adoption coordinator errors may occur 02/22/2025 BMI 28.0-28.9,adult (ICD-10 - Z68.28) Acute Concerns/Problem List: 02/22/2025 Weight is holding steady off of medications Mental health is stable and managed by psychiatry Will see her back in the spring for Medicare visit with labs Total time spent today was 30 minutes of which greater than 50% was spent on coordinating and counseling Patient has been found to be overweight with a BMI of (28). Patient has overweight class per BMI standards Of note, some information is being carried forward from prior records for informational purposes only and is being cited so that efficiency, safety and quality of the patient's care is not compromised This note was prepared using voice recognition software and direct typing Please excuse inadvertent post adoption coordinator or typing errors, or uncorrected word substitutions Although every attempt has been made by the provider to proofread this document, occasional misspellings and typographical errors may still be present Due to the previous pandemic, and the use of personal protective equipment (PPE) This may decrease voice recognition accuracy Inadvertent post adoption coordinator errors may occur 02/22/2025 Overweight (BMI 25.0-29.9) (ICD-10 - E66.3) Acute Concerns/Problem List: 02/22/2025 Weight is holding steady off of medications Mental health is stable and managed by psychiatry Will see her back in the spring for Medicare visit with labs Total time spent today was 30 minutes of which greater than 50% was spent on coordinating and counseling Patient has been found to be overweight with a BMI of (28). Patient has overweight class per BMI standards Of note, some information is being carried forward from prior records for informational purposes only and is being cited so that efficiency, safety and quality of the patient's care is not compromised This note was prepared using voice recognition software and direct typing Please excuse inadvertent post adoption coordinator or typing errors, or uncorrected word substitutions Although every attempt has been made by the provider to proofread this document, occasional misspellings and typographical errors may still be present Due to the previous pandemic, and the use of personal protective equipment (PPE) This may decrease voice recognition accuracy Inadvertent post adoption coordinator errors may occur 02/22/2025 Dietary counseling and surveillance (ICD-10 - Z71.3) Acute Concerns/Problem List: 02/22/2025 Weight is holding steady off of medications Mental health is stable and managed by psychiatry Will see her back in the spring for Medicare visit with labs Total time spent today was 30 minutes of which greater than 50% was spent on coordinating and counseling Patient has been found to be overweight with a BMI of (28). Patient has overweight class per BMI standards Of note, some information is being carried forward from prior records for informational purposes only and is being cited so that efficiency, safety and quality of the patient's care is not compromised This note was prepared using voice recognition software and direct typing Please excuse inadvertent post adoption coordinator or typing errors, or uncorrected word substitutions Although every attempt has been made by the provider to proofread this document, occasional misspellings and typographical errors may still be present Due to the previous pandemic, and the use of personal protective equipment (PPE) This may decrease voice recognition accuracy Inadvertent post adoption coordinator errors may occur 10/26/2024 BMI 28.0-28.9,adult (ICD-10 - Z68.28) Acute Concerns/Problem List: 10/26/2024 Work note provided today Will check a QuantiFERON-TB gold Unfortunately remains off of weight loss drugs Patient is following up with psychiatry for stimulant medication for ADHD. Patient has appointment at [place] with pot fireman for menopausal hormone screening. See her quarterly Total time spent today was 30 minutes of which greater than 50% was spent on coordinating and counseling Patient has been found to be overweight with a BMI of (28). Patient has overweight class per BMI standards Of note, some information is being carried forward from prior records for informational purposes only and is being cited so that efficiency, safety and quality of the patient's care is not compromised This note was prepared using voice recognition software and direct typing Please excuse inadvertent post adoption coordinator or typing errors, or uncorrected word substitutions Although every attempt has been made by the provider to proofread this document, occasional misspellings and typographical errors may still be present Due to the previous pandemic, and the use of personal protective equipment (PPE) This may decrease voice recognition accuracy Inadvertent post adoption coordinator errors may occur 06/28/2024 Encounter for screening for other disorder (ICD-10 - Z13.89) Acute Concerns/Problem List: 06/28/2024 CEE injection Will try for approval for Zepbound as she was thriving on Mounjaro previously Likely viral URI, Albuterol inhaler refill sent to pharmacy. Patient will have labs done to discuss at next visit. [facility] and [employer] forms signed and on file. Recommend follow-up with psychiatry for stimulant medication for ADHD. Recommend follow-up with pot fireman for menopausal hormone screening. Total time spent [...] software and direct typing Please excuse inadvertent post adoption coordinator or typing errors, or uncorrected word substitutions Although every attempt has been made by the provider to proofread this document, occasional misspellings and typographical errors may still be present Due to the previous pandemic, and the use of personal protective equipment (PPE) This may decrease voice recognition accuracy Inadvertent post adoption coordinator errors may occur 09/12/2024 BMI 28.0-28.9,adult (ICD-10 - Z68.28) #Weight Management 09/12/2024 CEE injection Will try for approval for Zepbound as she was thriving on Mounjaro previously Recommend follow-up with psychiatry for stimulant medication for ADHD. Recommend follow-up with pot fireman for menopausal hormone screening. Total time spent today was 30 minutes of which greater than 50% was spent on coordinating and counseling Patient has been found to be overweight with a BMI of (28). Patient has overweight class per BMI standards Of note, some information is being carried forward from prior records for informational purposes only and is being cited so that efficiency, safety and quality of the patient's care is not compromised This note was prepared using voice recognition software and direct typing Please excuse inadvertent post adoption coordinator or typing errors, or uncorrected word substitutions Although every attempt has been made by the provider to proofread this document, occasional misspellings and typographical errors may still be present Due to the previous pandemic, and the use of personal protective equipment (PPE) This may decrease voice recognition accuracy Inadvertent post adoption coordinator errors may occur 05/11/2024 Dietary counseling and surveillance (ICD-10 - Z71.3) #Weight Management 05/11/2024 CEE injection today Will try for approval for Zepbound as she was thriving on Mounjaro previously RMV paperwork today for [facility] Will see her back in the spring for labs and MWV Total time spent today was 30 minutes [...] software and direct typing Please excuse inadvertent post adoption coordinator or typing errors, or uncorrected word substitutions Although every attempt has been made by the provider to proofread this document, occasional misspellings and typographical errors may still be present Due to the previous pandemic, and the use of personal protective equipment (PPE) This may decrease voice recognition accuracy Inadvertent post adoption coordinator errors may occur 05/11/2024 Chronic obstructive asthma (ICD-10 - J44.9) #Weight Management 05/11/2024 CEE injection today Will try for approval for Zepbound as she was thriving on Mounjaro previously RMV paperwork today for [facility] Will see her back in the spring for labs and MWV Total time spent today was 30 minutes [...] software and direct typing Please excuse inadvertent post adoption coordinator or typing errors, or uncorrected word substitutions Although every attempt has been made by the provider to proofread this document, occasional misspellings and typographical errors may still be present Due to the previous pandemic, and the use of personal protective equipment (PPE) This may decrease voice recognition accuracy Inadvertent post adoption coordinator errors may occur 09/12/2024 Dietary counseling and surveillance (ICD-10 - Z71.3) #Weight Management 09/12/2024 CEE injection Will try for approval for Zepbound as she was thriving on Mounjaro previously Recommend follow-up with psychiatry for stimulant medication for ADHD. Recommend follow-up with pot fireman for menopausal hormone screening. Total time spent today was 30 minutes of which greater than 50% was spent on coordinating and counseling Patient has been found to be overweight with a BMI of (28). Patient has overweight class per BMI standards Of note, some information is being carried forward from prior records for informational purposes only and is being cited so that efficiency, safety and quality of the patient's care is not compromised This note was prepared using voice recognition software and direct typing Please excuse inadvertent post adoption coordinator or typing errors, or uncorrected word substitutions Although every attempt has been made by the provider to proofread this document, occasional misspellings and typographical errors may still be present Due to the previous pandemic, and the use of personal protective equipment (PPE) This may decrease voice recognition accuracy Inadvertent post adoption coordinator errors may occur 06/28/2024 Advanced directives, counseling/discu ssion (ICD-10 - Z71.89) Acute Concerns/Problem List: 06/28/2024 CEE injection Will try for approval for Zepbound as she was thriving on Mounjaro previously Likely viral URI, Albuterol inhaler refill sent to pharmacy. Patient will have labs done to discuss at next visit. [facility] and [employer] forms signed and on file. Recommend follow-up with psychiatry for stimulant medication for ADHD. Recommend follow-up with pot fireman for menopausal hormone screening. Total time spent [...] software and direct typing Please excuse inadvertent post adoption coordinator or typing errors, or uncorrected word substitutions Although every attempt has been made by the provider to proofread this document, occasional misspellings and typographical errors may still be present Due to the previous pandemic, and the use of personal protective equipment (PPE) This may decrease voice recognition accuracy Inadvertent post adoption coordinator errors may occur 02/22/2025 Bipolar disorder with depression (ICD-10 - F31.9) Acute Concerns/Problem List: 02/22/2025 Weight is holding steady off of medications Mental health is stable and managed by psychiatry Will see her back in the spring for Medicare visit with labs Total time spent today was 30 minutes of which greater than 50% was spent on coordinating and counseling Patient has been found to be overweight with a BMI of (28). Patient has overweight class per BMI standards Of note, some information is being carried forward from prior records for informational purposes only and is being cited so that efficiency, safety and quality of the patient's care is not compromised This note was prepared using voice recognition software and direct typing Please excuse inadvertent post adoption coordinator or typing errors, or uncorrected word substitutions Although every attempt has been made by the provider to proofread this document, occasional misspellings and typographical errors may still be present Due to the previous pandemic, and the use of personal protective equipment (PPE) This may decrease voice recognition accuracy Inadvertent post adoption coordinator errors may occur 10/26/2024 Dietary counseling and surveillance (ICD-10 - Z71.3) Acute Concerns/Problem List: 10/26/2024 Work note provided today Will check a QuantiFERON-TB gold Unfortunately remains off of weight loss drugs Patient is following up with psychiatry for stimulant medication for ADHD. Patient has appointment at [place] with pot fireman for menopausal hormone screening. See her quarterly Total time spent today was 30 minutes of which greater than 50% was spent on coordinating and counseling Patient has been found to be overweight with a BMI of (28). Patient has overweight class per BMI standards Of note, some information is being carried forward from prior records for informational purposes only and is being cited so that efficiency, safety and quality of the patient's care is not compromised This note was prepared using voice recognition software and direct typing Please excuse inadvertent post adoption coordinator or typing errors, or uncorrected word substitutions Although every attempt has been made by the provider to proofread this document, occasional misspellings and typographical errors may still be present Due to the previous pandemic, and the use of personal protective equipment (PPE) This may decrease voice recognition accuracy Inadvertent post adoption coordinator errors may occur 02/22/2025 Chronic obstructive asthma (ICD-10 - J44.9) Acute Concerns/Problem List: 02/22/2025 Weight is holding steady off of medications Mental health is stable and managed by psychiatry Will see her back in the spring for Medicare visit with labs Total time spent today was 30 minutes of which greater than 50% was spent on coordinating and counseling Patient has been found to be overweight with a BMI of (28). Patient has overweight class per BMI standards Of note, some information is being carried forward from prior records for informational purposes only and is being cited so that efficiency, safety and quality of the patient's care is not compromised This note was prepared using voice recognition software and direct typing Please excuse inadvertent post adoption coordinator or typing errors, or uncorrected word substitutions Although every attempt has been made by the provider to proofread this document, occasional misspellings and typographical errors may still be present Due to the previous pandemic, and the use of personal protective equipment (PPE) This may decrease voice recognition accuracy Inadvertent post adoption coordinator errors may occur 10/26/2024 Bipolar disorder with depression (ICD-10 - F31.9) Acute Concerns/Problem List: 10/26/2024 Work note provided today Will check a QuantiFERON-TB gold Unfortunately remains off of weight loss drugs Patient is following up with psychiatry for stimulant medication for ADHD. Patient has appointment at [place] with pot fireman for menopausal hormone screening. See her quarterly Total time spent today was 30 minutes of which greater than 50% was spent on coordinating and counseling Patient has been found to be overweight with a BMI of (28). Patient has overweight class per BMI standards Of note, some information is being carried forward from prior records for informational purposes only and is being cited so that efficiency, safety and quality of the patient's care is not compromised This note was prepared using voice recognition software and direct typing Please excuse inadvertent post adoption coordinator or typing errors, or uncorrected word substitutions Although every attempt has been made by the provider to proofread this document, occasional misspellings and typographical errors may still be present Due to the previous pandemic, and the use of personal protective equipment (PPE) This may decrease voice recognition accuracy Inadvertent post adoption coordinator errors may occur 09/12/2024 Chronic obstructive asthma (ICD-10 - J44.9) #Weight Management 09/12/2024 CEE injection Will try for approval for Zepbound as she was thriving on previously Recommend follow-up with psychiatry for stimulant medication for ADHD. Recommend follow-up with pot fireman for menopausal hormone screening. Total time spent today was 30 minutes of which greater than 50% was spent on coordinating and counseling Patient has been found to be overweight with a BMI of (28). Patient has overweight class per BMI standards Of note, some information is being carried forward from prior records for informational purposes only and is being cited so that efficiency, safety and quality of the patient's care is not compromised This note was prepared using voice recognition software and direct typing Please excuse inadvertent post adoption coordinator or typing errors, or uncorrected word substitutions Although every attempt has been made by the provider to proofread this document, occasional misspellings and typographical errors may still be present Due to the previous pandemic, and the use of personal protective equipment (PPE) This may decrease voice recognition accuracy Inadvertent post adoption coordinator errors may occur 05/11/2024 GERD without esophagitis (ICD-10 - K21.9) #Weight Management 05/11/2024 CEE injection today Will try for approval for Zepbound as she was thriving on previously RMV paperwork today for [facility] Will see her back in the spring for labs and MWV Total time spent today was 30 minutes [...] software and direct typing Please excuse inadvertent post adoption coordinator or typing errors, or uncorrected word substitutions Although every attempt has been made by the provider to proofread this document, occasional misspellings and typographical errors may still be present Due to the previous pandemic, and the use of personal protective equipment (PPE) This may decrease voice recognition accuracy Inadvertent post adoption coordinator errors may occur 06/28/2024 Other obesity due to excess calories (ICD-10 - E66.09) Acute Concerns/Problem List: 06/28/2024 CEE injection Will try for approval for Zepbound as she was thriving on Mounjaro previously Likely viral URI, Albuterol inhaler refill sent to pharmacy. Patient will have labs done to discuss at next visit. [facility] and [employer] forms signed and on file. Recommend follow-up with psychiatry for stimulant medication for ADHD. Recommend follow-up with pot fireman for menopausal hormone screening. Total time spent [...] software and direct typing Please excuse inadvertent post adoption coordinator or typing errors, or uncorrected word substitutions Although every attempt has been made by the provider to proofread this document, occasional misspellings and typographical errors may still be present Due to the previous pandemic, and the use of personal protective equipment (PPE) This may decrease voice recognition accuracy Inadvertent post adoption coordinator errors may occur 06/28/2024 BMI 31.0-31.9,adult (ICD-10 - Z68.31) Acute Concerns/Problem List: 06/28/2024 CEE injection Will try for approval for Zepbound as she was thriving on Mounjaro previously Likely viral URI, Albuterol inhaler refill sent to pharmacy. Patient will have labs done to discuss at next visit. [facility] and [employer] forms signed and on file. Recommend follow-up with psychiatry for stimulant medication for ADHD. Recommend follow-up with pot fireman for menopausal hormone screening. Total time spent [...] software and direct typing Please excuse inadvertent post adoption coordinator or typing errors, or uncorrected word substitutions Although every attempt has been made by the provider to proofread this document, occasional misspellings and typographical errors may still be present Due to the previous pandemic, and the use of personal protective equipment (PPE) This may decrease voice recognition accuracy Inadvertent post adoption coordinator errors may occur 05/11/2024 Bipolar disorder with depression (ICD-10 - F31.9) #Weight Management 05/11/2024 CEE injection today Will try for approval for Zepbound as she was thriving on unjaro previously RMV paperwork today for [facility] Will see her back in the spring for labs and MWV Total time spent today was 30 minutes [...] software and direct typing Please excuse inadvertent post adoption coordinator or typing errors, or uncorrected word substitutions Although every attempt has been made by the provider to proofread this document, occasional misspellings and typographical errors may still be present Due to the previous pandemic, and the use of personal protective equipment (PPE) This may decrease voice recognition accuracy Inadvertent post adoption coordinator errors may occur 10/26/2024 Chronic obstructive asthma (ICD-10 - J44.9) Acute Concerns/Problem List: 10/26/2024 Work note provided today Will check a QuantiFERON-TB gold Unfortunately remains off of weight loss drugs Patient is following up with psychiatry for stimulant medication for ADHD. Patient has appointment at [place] with pot fireman for menopausal hormone screening. See her quarterly Total time spent today was 30 minutes of which greater than 50% was spent on coordinating and counseling Patient has been found to be overweight with a BMI of (28). Patient has overweight class per BMI standards Of note, some information is being carried forward from prior records for informational purposes only and is being cited so that efficiency, safety and quality of the patient's care is not compromised This note was prepared using voice recognition software and direct typing Please excuse inadvertent post adoption coordinator or typing errors, or uncorrected word substitutions Although every attempt has been made by the provider to proofread this document, occasional misspellings and typographical errors may still be present Due to the previous pandemic, and the use of personal protective equipment (PPE) This may decrease voice recognition accuracy Inadvertent post adoption coordinator errors may occur 09/12/2024 GERD without esophagitis (ICD-10 - K21.9) #Weight Management 09/12/2024 CEE injection Will try for approval for Zepbound as she was thriving on Mounjaro previously Recommend follow-up with psychiatry for stimulant medication for ADHD. Recommend follow-up with pot fireman for menopausal hormone screening. Total time spent today was 30 minutes of which greater than 50% was spent on coordinating and counseling Patient has been found to be overweight with a BMI of (28). Patient has overweight class per BMI standards Of note, some information is being carried forward from prior records for informational purposes only and is being cited so that efficiency, safety and quality of the patient's care is not compromised This note was prepared using voice recognition software and direct typing Please excuse inadvertent post adoption coordinator or typing errors, or uncorrected word substitutions Although every attempt has been made by the provider to proofread this document, occasional misspellings and typographical errors may still be present Due to the previous pandemic, and the use of personal protective equipment (PPE) This may decrease voice recognition accuracy Inadvertent post adoption coordinator errors may occur 02/22/2025 GERD without esophagitis (ICD-10 - K21.9) Acute Concerns/Problem List: 02/22/2025 Weight is holding steady off of medications Mental health is stable and managed by psychiatry Will see her back in the spring for Medicare visit with labs Total time spent today was 30 minutes of which greater than 50% was spent on coordinating and counseling Patient has been found to be overweight with a BMI of (28). Patient has overweight class per BMI standards Of note, some information is being carried forward from prior records for informational purposes only and is being cited so that efficiency, safety and quality of the patient's care is not compromised This note was prepared using voice recognition software and direct typing Please excuse inadvertent post adoption coordinator or typing errors, or uncorrected word substitutions Although every attempt has been made by the provider to proofread this document, occasional misspellings and typographical errors may still be present Due to the previous pandemic, and the use of personal protective equipment (PPE) This may decrease voice recognition accuracy Inadvertent post adoption coordinator errors may occur 09/12/2024 Bipolar disorder with depression (ICD-10 - F31.9) #Weight Management 09/12/2024 CEE injection Will try for approval for Zepbound as she was thriving on Mounjaro previously Recommend follow-up with psychiatry for stimulant medication for ADHD. Recommend follow-up with pot fireman for menopausal hormone screening. Total time spent today was 30 minutes of which greater than 50% was spent on coordinating and counseling Patient has been found to be overweight with a BMI of (28). Patient has overweight class per BMI standards Of note, some information is being carried forward from prior records for informational purposes only and is being cited so that efficiency, safety and quality of the patient's care is not compromised This note was prepared using voice recognition software and direct typing Please excuse inadvertent post adoption coordinator or typing errors, or uncorrected word substitutions Although every attempt has been made by the provider to proofread this document, occasional misspellings and typographical errors may still be present Due to the previous pandemic, and the use of personal protective equipment (PPE) This may decrease voice recognition accuracy Inadvertent post adoption coordinator errors may occur 02/22/2025 [place] (generalized anxiety disorder) (ICD-10 - F41.1) Acute Concerns/Problem List: 02/22/2025 Weight is holding steady off of medications Mental health is stable and managed by psychiatry Will see her back in the spring for Medicare visit with labs Total time spent today was 30 minutes of which greater than 50% was spent on coordinating and counseling Patient has been found to be overweight with a BMI of (28). Patient has overweight class per BMI standards Of note, some information is being carried forward from prior records for informational purposes only and is being cited so that efficiency, safety and quality of the patient's care is not compromised This note was prepared using voice recognition software and direct typing Please excuse inadvertent post adoption coordinator or typing errors, or uncorrected word substitutions Although every attempt has been made by the provider to proofread this document, occasional misspellings and typographical errors may still be present Due to the previous pandemic, and the use of personal protective equipment (PPE) This may decrease voice recognition accuracy Inadvertent post adoption coordinator errors may occur 10/26/2024 GERD without esophagitis (ICD-10 - K21.9) Acute Concerns/Problem List: 10/26/2024 Work note provided today Will check a QuantiFERON-TB gold Unfortunately remains off of weight loss drugs Patient is following up with psychiatry for stimulant medication for ADHD. Patient has appointment at [facility] with pot fireman for menopausal hormone screening. See her quarterly Total time spent today was 30 minutes of which greater than 50% was spent on coordinating and counseling Patient has been found to be overweight with a BMI of (28). Patient has overweight class per BMI standards Of note, some information is being carried forward from prior records for informational purposes only and is being cited so that efficiency, safety and quality of the patient's care is not compromised This note was prepared using voice recognition software and direct typing Please excuse inadvertent post adoption coordinator or typing errors, or uncorrected word substitutions Although every attempt has been made by the provider to proofread this document, occasional misspellings and typographical errors may still be present Due to the previous pandemic, and the use of personal protective equipment (PPE) This may decrease voice recognition accuracy Inadvertent post adoption coordinator errors may occur 05/11/2024 CLEMENCIA (generalized anxiety disorder) (ICD-10 - F41.1) #Weight Management 05/11/2024 CEE injection today Will try for approval for Zepbound as she was thriving on Mounjaro previously RMV paperwork today for edinson Will see her back in the spring for labs and MWV Total time spent today was 30 minutes [...] software and direct typing Please excuse inadvertent post adoption coordinator or typing errors, or uncorrected word substitutions Although every attempt has been made by the provider to proofread this document, occasional misspellings and typographical errors may still be present Due to the previous pandemic, and the use of personal protective equipment (PPE) This may decrease voice recognition accuracy Inadvertent post adoption coordinator errors may occur 06/28/2024 Chronic obstructive asthma (ICD-10 - J44.9) Acute Concerns/Problem List: 06/28/2024 CEE injection Will try for approval for Zepbound as she was thriving on Mounjaro previously Likely viral URI, Albuterol inhaler refill sent to pharmacy. Patient will have labs done to discuss at next visit. [employer] and [employer] forms signed and on file. Recommend follow-up with psychiatry for stimulant medication for ADHD. Recommend follow-up with pot fireman for menopausal hormone screening. Total time spent [...] software and direct typing Please excuse inadvertent post adoption coordinator or typing errors, or uncorrected word substitutions Although every attempt has been made by the provider to proofread this document, occasional misspellings and typographical errors may still be present Due to the previous pandemic, and the use of personal protective equipment (PPE) This may decrease voice recognition accuracy Inadvertent post adoption coordinator errors may occur 06/28/2024 GERD without esophagitis (ICD-10 - K21.9) Acute Concerns/Problem List: 06/28/2024 CEE injection Will try for approval for Zepbound as she was thriving on Mounjaro previously Likely viral URI, Albuterol inhaler refill sent to pharmacy. Patient will have labs done to discuss at next visit. [facility] and [employer] forms signed and on file. Recommend follow-up with psychiatry for stimulant medication for ADHD. Recommend follow-up with pot fireman for menopausal hormone screening. Total time spent [...] software and direct typing Please excuse inadvertent post adoption coordinator or typing errors, or uncorrected word substitutions Although every attempt has been made by the provider to proofread this document, occasional misspellings and typographical errors may still be present Due to the previous pandemic, and the use of personal protective equipment (PPE) This may decrease voice recognition accuracy Inadvertent post adoption coordinator errors may occur 05/11/2024 Adult ADHD (ICD-10 - F90.9) #Weight Management 05/11/2024 CEE injection today Will try for approval for Zepbound as she was thriving on Mounjaro previously RMV paperwork today for edinson Will see her back in the spring for labs and MWV Total time spent today was 30 minutes [...] software and direct typing Please excuse inadvertent post adoption coordinator or typing errors, or uncorrected word substitutions Although every attempt has been made by the provider to proofread this document, occasional misspellings and typographical errors may still be present Due to the previous pandemic, and the use of personal protective equipment (PPE) This may decrease voice recognition accuracy Inadvertent post adoption coordinator errors may occur 09/12/2024 CLEMENCIA (generalized anxiety disorder) (ICD-10 - F41.1) #Weight Management 09/12/2024 CEE injection Will try for approval for Zepbound as she was thriving on Mounjaro previously Recommend follow-up with psychiatry for stimulant medication for ADHD. Recommend follow-up with pot fireman for menopausal hormone screening. Total time spent today was 30 minutes of which greater than 50% was spent on coordinating and counseling Patient has been found to be overweight with a BMI of (28). Patient has overweight class per BMI standards Of note, some information is being carried forward from prior records for informational purposes only and is being cited so that efficiency, safety and quality of the patient's care is not compromised This note was prepared using voice recognition software and direct typing Please excuse inadvertent post adoption coordinator or typing errors, or uncorrected word substitutions Although every attempt has been made by the provider to proofread this document, occasional misspellings and typographical errors may still be present Due to the previous pandemic, and the use of personal protective equipment (PPE) This may decrease voice recognition accuracy Inadvertent post adoption coordinator errors may occur 02/22/2025 Adult ADHD (ICD-10 - F90.9) Acute Concerns/Problem List: 02/22/2025 Weight is holding steady off of medications Mental health is stable and managed by psychiatry Will see her back in the spring for Medicare visit with labs Total time spent today was 30 minutes of which greater than 50% was spent on coordinating and counseling Patient has been found to be overweight with a BMI of (28). Patient has overweight class per BMI standards Of note, some information is being carried forward from prior records for informational purposes only and is being cited so that efficiency, safety and quality of the patient's care is not compromised This note was prepared using voice recognition software and direct typing Please excuse inadvertent post adoption coordinator or typing errors, or uncorrected word substitutions Although every attempt has been made by the provider to proofread this document, occasional misspellings and typographical errors may still be present Due to the previous pandemic, and the use of personal protective equipment (PPE) This may decrease voice recognition accuracy Inadvertent post adoption coordinator errors may occur 10/26/2024 CLEMENCIA (generalized anxiety disorder) (ICD-10 - F41.1) Acute Concerns/Problem List: 10/26/2024 Work note provided today Will check a QuantiFERON-TB gold Unfortunately remains off of weight loss drugs Patient is following up with psychiatry for stimulant medication for ADHD. Patient has appointment at [facility] with pot fireman for menopausal hormone screening. See her quarterly Total time spent today was 30 minutes of which greater than 50% was spent on coordinating and counseling Patient has been found to be overweight with a BMI of (28). Patient has overweight class per BMI standards Of note, some information is being carried forward from prior records for informational purposes only and is being cited so that efficiency, safety and quality of the patient's care is not compromised This note was prepared using voice recognition software and direct typing Please excuse inadvertent post adoption coordinator or typing errors, or uncorrected word substitutions Although every attempt has been made by the provider to proofread this document, occasional misspellings and typographical errors may still be present Due to the previous pandemic, and the use of personal protective equipment (PPE) This may decrease voice recognition accuracy Inadvertent post adoption coordinator errors may occur 10/26/2024 Adult ADHD (ICD-10 - F90.9) Acute Concerns/Problem List: 10/26/2024 Work note provided today Will check a QuantiFERON-TB gold Unfortunately remains off of weight loss drugs Patient is following up with psychiatry for stimulant medication for ADHD. Patient has appointment at [place] with pot fireman for menopausal hormone screening. See her quarterly Total time spent today was 30 minutes of which greater than 50% was spent on coordinating and counseling Patient has been found to be overweight with a BMI of (28). Patient has overweight class per BMI standards Of note, some information is being carried forward from prior records for informational purposes only and is being cited so that efficiency, safety and quality of the patient's care is not compromised This note was prepared using voice recognition software and direct typing Please excuse inadvertent post adoption coordinator or typing errors, or uncorrected word substitutions Although every attempt has been made by the provider to proofread this document, occasional misspellings and typographical errors may still be present Due to the previous pandemic, and the use of personal protective equipment (PPE) This may decrease voice recognition accuracy Inadvertent post adoption coordinator errors may occur 09/12/2024 Adult ADHD (ICD-10 - F90.9) #Weight Management 09/12/2024 CEE injection Will try for approval for Zepbound as she was thriving on Mounjaro previously Recommend follow-up with psychiatry for stimulant medication for ADHD. Recommend follow-up with pot fireman for menopausal hormone screening. Total time spent today was 30 minutes of which greater than 50% was spent on coordinating and counseling Patient has been found to be overweight with a BMI of (28). Patient has overweight class per BMI standards Of note, some information is being carried forward from prior records for informational purposes only and is being cited so that efficiency, safety and quality of the patient's care is not compromised This note was prepared using voice recognition software and direct typing Please excuse inadvertent post adoption coordinator or typing errors, or uncorrected word substitutions Although every attempt has been made by the provider to proofread this document, occasional misspellings and typographical errors may still be present Due to the previous pandemic, and the use of personal protective equipment (PPE) This may decrease voice recognition accuracy Inadvertent post adoption coordinator errors may occur 06/28/2024 Bipolar disorder with depression (ICD-10 - F31.9) Acute Concerns/Problem List: 06/28/2024 CEE injection Will try for approval for Zepbound as she was thriving on Mounjaro previously Likely viral URI, Albuterol inhaler refill sent to pharmacy. Patient will have labs done to discuss at next visit. [employer] and [employer] forms signed and on file. Recommend follow-up with psychiatry for stimulant medication for ADHD. Recommend follow-up with pot fireman for menopausal hormone screening. Total time spent [...] software and direct typing Please excuse inadvertent post adoption coordinator or typing errors, or uncorrected word substitutions Although every attempt has been made by the provider to proofread this document, occasional misspellings and typographical errors may still be present Due to the previous pandemic, and the use of personal protective equipment (PPE) This may decrease voice recognition accuracy Inadvertent post adoption coordinator errors may occur 06/28/2024 CLEMENCIA (generalized anxiety disorder) (ICD-10 - F41.1) Acute Concerns/Problem List: 06/28/2024 CEE injection Will try for approval for Keke as she was thriving on Mounjaro previously Likely viral URI, Albuterol inhaler refill sent to pharmacy. Patient will have labs done to discuss at next visit. [facility] and [employer] forms signed and on file. Recommend follow-up with psychiatry for stimulant medication for ADHD. Recommend follow-up with pot fireman for menopausal hormone screening. Total time spent [...] software and direct typing Please excuse inadvertent post adoption coordinator or typing errors, or uncorrected word substitutions Although every attempt has been made by the provider to proofread this document, occasional misspellings and typographical errors may still be present Due to the previous pandemic, and the use of personal protective equipment (PPE) This may decrease voice recognition accuracy Inadvertent post adoption coordinator errors may occur 10/26/2024 Encounter for examination of blood pressure without abnormal findings (ICD-10 - Z01.30) Acute Concerns/Problem List: 10/26/2024 Work note provided today Will check a QuantiFERON-TB gold Unfortunately remains off of weight loss drugs Patient is following up with psychiatry for stimulant medication for ADHD. Patient has appointment at [facility] with pot fireman for menopausal hormone screening. See her quarterly Total time spent today was 30 minutes of which greater than 50% was spent on coordinating and counseling Patient has been found to be overweight with a BMI of (28). Patient has overweight class per BMI standards Of note, some information is being carried forward from prior records for informational purposes only and is being cited so that efficiency, safety and quality of the patient's care is not compromised This note was prepared using voice recognition software and direct typing Please excuse inadvertent post adoption coordinator or typing errors, or uncorrected word substitutions Although every attempt has been made by the provider to proofread this document, occasional misspellings and typographical errors may still be present Due to the previous pandemic, and the use of personal protective equipment (PPE) This may decrease voice recognition accuracy Inadvertent post adoption coordinator errors may occur 09/12/2024 Encounter for examination of blood pressure without abnormal findings (ICD-10 - Z01.30) #Weight Management 09/12/2024 CEE injection Will try for approval for Zepbound as she was thriving on Mounjaro previously Recommend follow-up with psychiatry for stimulant medication for ADHD. Recommend follow-up with pot fireman for menopausal hormone screening. Total time spent today was 30 minutes of which greater than 50% was spent on coordinating and counseling Patient has been found to be overweight with a BMI of (28). Patient has overweight class per BMI standards Of note, some information is being carried forward from prior records for informational purposes only and is being cited so that efficiency, safety and quality of the patient's care is not compromised This note was prepared using voice recognition software and direct typing Please excuse inadvertent post adoption coordinator or typing errors, or uncorrected word substitutions Although every attempt has been made by the provider to proofread this document, occasional misspellings and typographical errors may still be present Due to the previous pandemic, and the use of personal protective equipment (PPE) This may decrease voice recognition accuracy Inadvertent post adoption coordinator errors may occur 10/26/2024 Screening for tuberculosis (ICD-10 - Z11.1) Acute Concerns/Problem List: 10/26/2024 Work note provided today Will check a QuantiFERON-TB gold Unfortunately remains off of weight loss drugs Patient is following up with psychiatry for stimulant medication for ADHD. Patient has appointment at [place] with pot fireman for menopausal hormone screening. See her quarterly Total time spent today was 30 minutes of which greater than 50% was spent on coordinating and counseling Patient has been found to be overweight with a BMI of (28). Patient has overweight class per BMI standards Of note, some information is being carried forward from prior records for informational purposes only and is being cited so that efficiency, safety and quality of the patient's care is not compromised This note was prepared using voice recognition software and direct typing Please excuse inadvertent post adoption coordinator or typing errors, or uncorrected word substitutions Although every attempt has been made by the provider to proofread this document, occasional misspellings and typographical errors may still be present Due to the previous pandemic, and the use of personal protective equipment (PPE) This may decrease voice recognition accuracy Inadvertent post adoption coordinator errors may occur 06/28/2024 Adult ADHD (ICD-10 - F90.9) Acute Concerns/Problem List: 06/28/2024 CEE injection Will try for approval for Zepbound as she was thriving on Mounjaro previously Likely viral URI, Albuterol inhaler refill sent to pharmacy. Patient will have labs done to discuss at next visit. [employer] and [employer] forms signed and on file. Recommend follow-up with psychiatry for stimulant medication for ADHD. Recommend follow-up with pot fireman for menopausal hormone screening. Total time spent [...] software and direct typing Please excuse inadvertent post adoption coordinator or typing errors, or uncorrected word substitutions Although every attempt has been made by the provider to proofread this document, occasional misspellings and typographical errors may still be present Due to the previous pandemic, and the use of personal protective equipment (PPE) This may decrease voice recognition accuracy Inadvertent post adoption coordinator errors may occur Plan Of Treatment Pending Test Test Name Order Date VITAMIN B12 02/22/2025 LIPID PANEL, STANDARD 05/11/2024 LIPID PANEL, STANDARD 02/22/2025 COMPREHENSIVE METABOLIC PANEL 02/22/2025 COMPREHENSIVE METABOLIC PANEL 05/11/2024 CBC (INCLUDES DIFF/PLT) 05/11/2024 CBC (INCLUDES DIFF/PLT) 02/22/2025 URINALYSIS, COMPLETE 02/22/2025 URINALYSIS, COMPLETE 05/11/2024 HEMOGLOBIN A1c 02/22/2025 HEMOGLOBIN A1c 05/11/2024 TSH 05/11/2024 TSH 02/22/2025 VITAMIN D,25-OH,TOTAL,IA 05/11/2024 VITAMIN D,25-OH,TOTAL,IA 02/22/2025 QUANTIFERON(R)-TB GOLD PLUS, 1 TUBE 10/05 Next Appt Details Provider Name:TALIA DEXTER, 07/04/2025 09:00:00 AM, [address] [facility], [facility], [place], [address], Insurance Providers Payer Name Payer Address Payer Phone Subscriber Number Group Number Insured Name Patient Relationship to Insured Coverage Start Date Coverage End Date [employer] or Options [address] [place] [id number] Angela Osborne Self - patient is the insured Medications Administered Medication Instructions Date of Administration Dosage Notes MICC B12 INJECTION 08/05/2023 1 mg MICC B12 INJECTION 09/04/2023 MICC B12 INJECTION 10/06/2023 1 mL MICC B12 INJECTION 05/11/2024 1 mg MICC B12 INJECTION 09/12/2024 Medical (General) History Medical History History ICD Code asthma Arthritis depression anxiety Surgical History Surgery Date(Month/Year) tubal ligation 2004
--- OUTSIDE RECORDS SUMMARY | 2025-04-03 11:40 | XMS_ITS | Encounter Summary ---
Author Organization [facility] Address [address] [place] [address] Care Team Providers Care Paleology Professor Name Role Phone Evelin Heard NP Primary Care Provider Encounter Details Date Type Department Care Team ([facility] Contact Info) Description 03/31/2025 Results Follow-Up Obstetrics and Gynecology - [facility] [address] [place], [place] [phone] Latia Nichols [address] [phone] Social History Tobacco Use Types Packs/Day Years [...] Encounters Date Type Department Care Team (Late Contact Info) Description 04/04/2025 9:45 AM EST Appointment Ultrasound - [facility] [address] [place], [place] [phone] 11/24/2025 8:40 AM EDT Office Visit Gastroenterology - [address] [phone] Diann Chavez NP [address] [id number] documented as of this encounter Visit Diagnoses Not on filedocumented in this encounter Care Teams Paleology Professor Relationship Specialty Start Date End Date Evelin Heard NP [address] [place] [id number] PCP - General Nurse Practitioner 07/12/24 documented as of this encounter
== END 2025-04-03 10:30 | disposition home or self-care (01) ==
LOC: HO.HSM 10:19
PROVIDERS: PCP Family Medicine; Visit Provider Registered Nurse
DX: G43.709 Chronic migraine without aura, not intractable, without status migrainosus (principal)
CPT/HCPCS: 99214

== ENCOUNTER → 2025-04-03 10:18 | Outpatient (BNVA) | payer OTHER, SELFPAY | PROVIDERS: PCP Family Medicine; Visit Provider Registered Nurse | DX: G43.709 Chronic migraine without aura, not intractable, without status migrainosus (principal); Z79.899 Other long term (current) drug therapy | CPT/HCPCS: 99212 ==